=== PATIENT | female | born 1960 | race Caucasian/White ===

== ENCOUNTER → 2016-12-13 | Outpatient (CLI) | payer OTHER ==
[~2016-12-13] MED LIST: /INSU7030 SC; ASPI325T PO; CALC600T10 OR; COUM7.5T PO; CREO24CA PO; INSUDET SC; INSULANT SC; LIPI20TA PO; LISI2.5T3 PO; LISI25TA PO; Levemir SC; NADO20TA PO; NICO21PAT TD; NOVO70VL SC; NOVOINJ2 SC; OMEP20TA7 OR; OXYC-299 PO; RANI150C PO; TRAM50TA2 PO; WARF-58 PO
--- NOTE | 2016-12-13 13:24 | REP ---
ULTRASOUND ABDOMEN WITH DUPLEX DOPPLER EVALUATION OF PORTAL VASCULATURE: Real-time sonographic evaluation of the abdomen performed. Comparison is made with prior study 03/04/2016. The patient has had a prior cholecystectomy. There is intrahepatic biliary dilatation as well as dilatation of the common bile duct up to 18 mm, unchanged since the prior exam. The liver demonstrates somewhat increased echotexture suggesting some degree of fibrofatty infiltration. The pancreas is not well seen due to overlying bowel gas in the region of the body and tail. No gross liver or pancreatic mass is seen. The spleen again appears to be enlarged measuring 14.7 x 12.8 x 7.4 cm with a splenic index of 1392. There appear to be calcified splenic granulomas. Size of the spleen appears stable compared to the prior study. Kidneys appear normal in size, right kidney measuring 10.0 x 5.1 x 5.4 cm and left kidney 10.0 x 5.3 x 4.5 cm. There is no renal mass, hydronephrosis or nephrolithiasis. Visualization of the abdominal aorta is limited due to overlying bowel gas and patient body habitus. No ascites is seen. Real-time ultrasound evaluation and duplex Doppler evaluation of the portal vasculature is performed. There is mild loss of phasicity in hepatic veins. Main portal vein is dilated up to 18 mm. Prior diameter was 13 mm. There again appears to be some echogenic debris in the main portal vein as seen on prior study compatible with chronic thrombus. Normal direction of flow is seen in the portal vasculature. Maximum velocity in the splenic vein is 19 cm/s. Velocity in the main portal vein is 40 cm/s. Peak systolic velocity in the main hepatic artery is 64.2 cm/s with resistive index 0.82. IMPRESSION: Status post cholecystectomy. Stable biliary dilatation as described above. Stable splenomegaly. Somewhat dilated main portal vein has minimally increased in caliber compared to the prior study. There is again echogenic debris in the main portal vein compatible with prior chronic thrombosis. There is normal direction of flow in the portal vasculature. Signed by Kelton Sofia MD 12/13/2016 02:31 P
== END ==
LOC: M RAD 08:10
PROVIDERS: ATTEND Internal Medicine Gastroenterology
DX: K86.1 Other chronic pancreatitis (principal); K83.8 Other specified diseases of biliary tract; I81 Portal vein thrombosis; R79.89 Other specified abnormal findings of blood chemistry; K74.3 Primary biliary cirrhosis; I85.00 Esophageal varices without bleeding; I86.4 Gastric varices

== ENCOUNTER 2017-10-10 21:48 | Inpatient (IN) | payer OTHER ==
[2017-10-10 23:00] LABS: BASO % 0.4 % (0.0-1.0); EOS # 0.1 10^3/uL (0.0-0.50); IMMATURE GRANULOCYTE # 0.1 10^3/uL (0-0); IMMATURE GRANULOCYTE % 0.8 % (0-0); MEAN CORPUSCULAR HGB CONC 32.8 g/dl (32.0-36.5); MEAN CORPUSCULAR VOLUME 91.3 fl (80.0-96.0); MONO # 0.3 10^3/uL (0.0-0.8); MONO % 3.9 % (0.0-5.0); NEUTROPHILS # 6.5 10^3/uL (1.8-7.7); NEUTROPHILS % 81.9 % (36.0-66.0); PLATELET COUNT, AUTOMATED 170 10^3/uL (150-450); RED CELL DISTRIBUTION WIDTH 14.7 % (11.5-14.5); WHITE BLOOD COUNT 7.9 10^3/uL (4.0-10.0)
[2017-10-10] MEDS: MORPHINE 2 MG/ML 1ML SYRINGE IV (23:15)
[2017-10-10 23:25] LABS: ANION GAP 7 MEQ/L (8-16); BLOOD UREA NITROGEN 9 MG/DL (7-18); CALCIUM LEVEL 8.1 MG/DL (8.5-10.1); CARBON DIOXIDE LEVEL 26 MEQ/L (21-32); CHLORIDE LEVEL 104 MEQ/L (98-107); CREATININE FOR GFR 0.64 MG/DL (0.55-1.02); GLOMERULAR FILTRATION RATE > 60.0 (>51); GLUCOSE, FASTING 113 MG/DL (70-105); POTASSIUM SERUM 4.1 MEQ/L (3.5-5.1); SODIUM LEVEL 137 MEQ/L (136-145)
[2017-10-10] MEDS ORDERED: ISOVUE-370 76% 100ML VIAL (Q9967) As Ordered (23:34)
[2017-10-11] MEDS ORDERED: ONDANSETRON 4MG/2ML VIAL (J2405) As Ordered (00:36)
[2017-10-11] MEDS: ACETAMINOPHEN 650 MG SUPP PR ×4 (00:45→23:34)
[2017-10-11] MEDS: hydrALAZINE INJ 20 MG/ML VIAL IV ×2 (01:39→06:39)
[2017-10-11] MEDS: D5W/0.45% SODIUM CHLORIDE 1,000 ML IV ×3 (01:45→16:21)
[2017-10-11] MEDS ORDERED: hydrALAZINE INJ 20 MG/ML VIAL IV (01:45)
[2017-10-11] MEDS ORDERED: GLUCAGON FOR INJ 1 MG VIAL (J1610) SC (02:00)
[2017-10-11] MEDS ORDERED: GLUCOSE 4 GM CHEW TABLET PO (02:00)
[2017-10-11] MEDS: MORPHINE 2 MG/ML 1ML SYRINGE IV (03:30)
[2017-10-11] MEDS ORDERED: NS 1,000 ML IV (03:30)
[2017-10-11] MEDS ORDERED: levETIRAcetam INJection 1,000 MG in D5W 100 ML IV (04:00)
[2017-10-11 04:47] LABS: MEAN CORPUSCULAR HEMOGLOBIN 29.7 pg (27.0-33.0); MEAN CORPUSCULAR HGB CONC 33.3 g/dl (32.0-36.5); PLATELET COUNT, AUTOMATED 169 10^3/uL (150-450); RED CELL DISTRIBUTION WIDTH 14.6 % (11.5-14.5); WHITE BLOOD COUNT 8.5 10^3/uL (4.0-10.0)
[2017-10-11] MEDS: levETIRAcetam INJection 1,000 MG in D5W 100 ML IV (05:15)
[2017-10-11] MEDS: amLODIPine 5 MG TAB PO (05:19)
[2017-10-11] MEDS: ACETAMINOPHEN TAB 650MG DOSE (2X325MG) PO (05:34)
[2017-10-11] MEDS ORDERED: D5W/0.45% SODIUM CHLORIDE 1,000 ML IV (05:45)
[2017-10-11] MEDS: ONDANSETRON 4MG/2ML VIAL (J2405) IV ×4 (06:31→23:33)
[2017-10-11] MEDS ORDERED: niCARdipine IV 40 MG in APPROPRIATE DILUENT 1 EA IV (07:00)
[2017-10-11] MEDS: HumaLOG INSULIN (NovoLOG) PER UNIT SC ×6 (07:30→23:16)
[2017-10-11 07:34] LABS: ALBUMIN 2.3 GM/DL (3.2-5.2); ALBUMIN/GLOBULIN RATIO 0.47 (1.00-1.93); ALKALINE PHOSPHATASE 1500 U/L (45-117); ALT/SGPT 67 U/L (12-78); ANION GAP 9 MEQ/L (8-16); AST/SGOT 94 U/L (7-37); BILIRUBIN,TOTAL 2.2 MG/DL (0.2-1.0); BLOOD UREA NITROGEN 9 MG/DL (7-18); CALCIUM LEVEL 8.1 MG/DL (8.5-10.1); CARBON DIOXIDE LEVEL 24 MEQ/L (21-32); CHLORIDE LEVEL 104 MEQ/L (98-107); GLOMERULAR FILTRATION RATE > 60.0 (>51); GLUCOSE, FASTING 115 MG/DL (70-105); POTASSIUM SERUM 3.7 MEQ/L (3.5-5.1); SODIUM LEVEL 137 MEQ/L (136-145); TOTAL PROTEIN 7.2 GM/DL (6.4-8.2)
[2017-10-11] MEDS: PROPRANOLOL 20 MG TAB PO ×2 (09:00→20:31)
[2017-10-11] MEDS: ATORVASTATIN 20 MG TAB PO (09:00)
[2017-10-11] MEDS ORDERED: LISINOPRIL *2.5 MG* TAB PO (09:00)
[2017-10-11] MEDS: URSODIOL 300 MG CAP PO ×2 (09:00→20:31)
[2017-10-11] MEDS: PANTOPRAZOLE 40MG INJ (PROTONIX) (C9113) IV (09:01)
[2017-10-11] MEDS: NS 1,000 ML IV (10:15)
[2017-10-11] MEDS ORDERED: ACETAMINOPHEN 650 MG SUPP PR (12:00)
[2017-10-11] MEDS: SODIUM CHLORIDE 0.9% 1000 ML IV (13:15)
[2017-10-11] MEDS: DEXTROSE 50% 50 ML SYRINGE IV ×2 (16:11→20:32)
[2017-10-11] MEDS ORDERED: HumaLOG INSULIN (NovoLOG) PER UNIT SC (21:00)
[2017-10-12] MEDS: DEXTROSE 50% 50 ML SYRINGE IV (01:26)
[2017-10-12] MEDS: D5W/0.45% SODIUM CHLORIDE 1,000 ML IV (01:30)
[2017-10-12] MEDS: D5W 250 ML IV (01:30)
[2017-10-12] MEDS: MORPHINE 2 MG/ML 1ML SYRINGE IV ×2 (01:43→21:35)
[2017-10-12] MEDS: HumaLOG INSULIN (NovoLOG) PER UNIT SC ×5 (04:00→19:53)
[2017-10-12] MEDS: levETIRAcetam INJection 1,000 MG in D5W 100 ML IV (04:25)
[2017-10-12] MEDS: hydrALAZINE INJ 20 MG/ML VIAL IV ×3 (04:25→19:55)
[2017-10-12 04:29] LABS: MEAN CORPUSCULAR HEMOGLOBIN 29.8 pg (27.0-33.0); MEAN CORPUSCULAR HGB CONC 33.1 g/dl (32.0-36.5); MEAN CORPUSCULAR VOLUME 90.1 fl (80.0-96.0); PLATELET COUNT, AUTOMATED 104 10^3/uL (150-450); RED CELL DISTRIBUTION WIDTH 14.3 % (11.5-14.5); WHITE BLOOD COUNT 6.5 10^3/uL (4.0-10.0)
[2017-10-12 04:56] LABS: ANION GAP 7 MEQ/L (8-16); BLOOD UREA NITROGEN 11 MG/DL (7-18); CARBON DIOXIDE LEVEL 24 MEQ/L (21-32); CHLORIDE LEVEL 108 MEQ/L (98-107); CREATININE FOR GFR 0.58 MG/DL (0.55-1.02); GLOMERULAR FILTRATION RATE > 60.0 (>51); GLUCOSE, FASTING 141 MG/DL (70-105); POTASSIUM SERUM 3.2 MEQ/L (3.5-5.1); SODIUM LEVEL 139 MEQ/L (136-145)
[2017-10-12] MEDS: ONDANSETRON 4MG/2ML VIAL (J2405) IV ×3 (06:22→18:19)
[2017-10-12] MEDS: ACETAMINOPHEN 650 MG SUPP PR (06:23)
[2017-10-12] MEDS ORDERED: POTASSIUM CHLORIDE 10 MEQ SR TABLET PO (08:00)
[2017-10-12] MEDS: KCL 40MEQ IN D5/0.45NS 1000ML 1,000 ML IV ×2 (08:31→18:19)
[2017-10-12] MEDS: PANTOPRAZOLE 40MG INJ (PROTONIX) (C9113) IV (08:31)
[2017-10-12] MEDS: KCL 10MEQ IN 100ML SWI (KRUN) 10 MEQ in APPROPRIATE DILUENT 1 EA IV ×2 (08:31→10:18)
[2017-10-12] MEDS ORDERED: amLODIPine 5 MG TAB PO (09:00)
[2017-10-12] MEDS: ATORVASTATIN 20 MG TAB PO (09:00)
[2017-10-12] MEDS: niMODipine 30 MG CAP NG ×4 (10:18→21:17)
[2017-10-12 15:43] LABS: ALBUMIN 1.9 GM/DL (3.2-5.2); ALBUMIN/GLOBULIN RATIO 0.39 (1.00-1.93); ALKALINE PHOSPHATASE 1099 U/L (45-117); ALT/SGPT 37 U/L (12-78); ANION GAP 7 MEQ/L (8-16); AST/SGOT 40 U/L (7-37); BILIRUBIN,TOTAL 1.5 MG/DL (0.2-1.0); BLOOD UREA NITROGEN 9 MG/DL (7-18); CALCIUM LEVEL 8.3 MG/DL (8.5-10.1); CARBON DIOXIDE LEVEL 24 MEQ/L (21-32); CHLORIDE LEVEL 106 MEQ/L (98-107); CREATININE FOR GFR 0.57 MG/DL (0.55-1.02); GLOMERULAR FILTRATION RATE > 60.0 (>51); GLUCOSE, FASTING 136 MG/DL (70-105); POTASSIUM SERUM 3.7 MEQ/L (3.5-5.1); SODIUM LEVEL 137 MEQ/L (136-145); TOTAL PROTEIN 6.8 GM/DL (6.4-8.2)
[2017-10-13] MEDS: ONDANSETRON 4MG/2ML VIAL (J2405) IV
[2017-10-13] MEDS: niMODipine 30 MG CAP NG ×6 (01:59→21:33)
[2017-10-13] MEDS: hydrALAZINE INJ 20 MG/ML VIAL IV ×3 (04:00→19:57)
[2017-10-13] MEDS: KCL 40MEQ IN D5/0.45NS 1000ML 1,000 ML IV ×2 (04:11→14:39)
[2017-10-13] MEDS: HumaLOG INSULIN (NovoLOG) PER UNIT SC ×6 (04:11→19:58)
[2017-10-13] MEDS: levETIRAcetam INJection 1,000 MG in D5W 100 ML IV (04:26)
[2017-10-13 04:39] LABS: MEAN CORPUSCULAR HEMOGLOBIN 29.8 pg (27.0-33.0); MEAN CORPUSCULAR HGB CONC 32.9 g/dl (32.0-36.5); MEAN CORPUSCULAR VOLUME 90.7 fl (80.0-96.0); PLATELET COUNT, AUTOMATED 102 10^3/uL (150-450); RED CELL DISTRIBUTION WIDTH 14.4 % (11.5-14.5); WHITE BLOOD COUNT 5.7 10^3/uL (4.0-10.0)
[2017-10-13 05:03] LABS: ANION GAP 8 MEQ/L (8-16); BLOOD UREA NITROGEN 7 MG/DL (7-18); CALCIUM LEVEL 8.3 MG/DL (8.5-10.1); CARBON DIOXIDE LEVEL 22 MEQ/L (21-32); CHLORIDE LEVEL 108 MEQ/L (98-107); CREATININE FOR GFR 0.55 MG/DL (0.55-1.02); GLOMERULAR FILTRATION RATE > 60.0 (>51); GLUCOSE, FASTING 172 MG/DL (70-105); POTASSIUM SERUM 4.1 MEQ/L (3.5-5.1); SODIUM LEVEL 138 MEQ/L (136-145)
[2017-10-13] MEDS: PANTOPRAZOLE 40MG INJ (PROTONIX) (C9113) IV (08:12)
[2017-10-13] MEDS: ATORVASTATIN 20 MG TAB PO (08:15)
[2017-10-14] MEDS: KCL 40MEQ IN D5/0.45NS 1000ML 1,000 ML IV (00:26)
[2017-10-14] MEDS: HumaLOG INSULIN (NovoLOG) PER UNIT SC ×6 (00:27→19:49)
[2017-10-14] MEDS: niMODipine 30 MG CAP NG ×7 (02:18→22:25)
[2017-10-14] MEDS: hydrALAZINE INJ 20 MG/ML VIAL IV ×3 (04:00→19:45)
[2017-10-14] MEDS: levETIRAcetam INJection 1,000 MG in D5W 100 ML IV (04:55)
[2017-10-14 05:08] LABS: MEAN CORPUSCULAR HEMOGLOBIN 29.6 pg (27.0-33.0); MEAN CORPUSCULAR VOLUME 89.8 fl (80.0-96.0); PLATELET COUNT, AUTOMATED 100 10^3/uL (150-450); RED CELL DISTRIBUTION WIDTH 13.9 % (11.5-14.5); WHITE BLOOD COUNT 5.6 10^3/uL (4.0-10.0)
[2017-10-14 05:21] LABS: ANION GAP 5 MEQ/L (8-16); BLOOD UREA NITROGEN 7 MG/DL (7-18); CALCIUM LEVEL 8.4 MG/DL (8.5-10.1); CARBON DIOXIDE LEVEL 26 MEQ/L (21-32); CHLORIDE LEVEL 105 MEQ/L (98-107); CREATININE FOR GFR 0.53 MG/DL (0.55-1.02); GLOMERULAR FILTRATION RATE > 60.0 (>51); GLUCOSE, FASTING 216 MG/DL (70-105); POTASSIUM SERUM 4.4 MEQ/L (3.5-5.1); SODIUM LEVEL 136 MEQ/L (136-145)
[2017-10-14] MEDS: ATORVASTATIN 20 MG TAB PO (09:00)
[2017-10-14] MEDS: PANTOPRAZOLE 40MG INJ (PROTONIX) (C9113) IV (09:00)
[2017-10-14] MEDS: D5W/0.45% SODIUM CHLORIDE 1,000 ML IV (12:45)
[2017-10-15] MEDS: HumaLOG INSULIN (NovoLOG) PER UNIT SC ×6 (00:15→21:21)
[2017-10-15] MEDS: niMODipine 30 MG CAP NG ×6 (01:59→22:49)
[2017-10-15] MEDS: D5W/0.45% SODIUM CHLORIDE 1,000 ML IV (03:56)
[2017-10-15] MEDS: levETIRAcetam INJection 1,000 MG in D5W 100 ML IV (03:56)
[2017-10-15] MEDS: hydrALAZINE INJ 20 MG/ML VIAL IV ×3 (03:57→20:00)
[2017-10-15 05:34] LABS: ANION GAP 9 MEQ/L (8-16); BLOOD UREA NITROGEN 8 MG/DL (7-18); CALCIUM LEVEL 7.9 MG/DL (8.5-10.1); CARBON DIOXIDE LEVEL 23 MEQ/L (21-32); CHLORIDE LEVEL 99 MEQ/L (98-107); CREATININE FOR GFR 0.69 MG/DL (0.55-1.02); GLOMERULAR FILTRATION RATE > 60.0 (>51); GLUCOSE, FASTING 194 MG/DL (70-105); POTASSIUM SERUM 3.5 MEQ/L (3.5-5.1); SODIUM LEVEL 131 MEQ/L (136-145)
[2017-10-15 07:40] LABS: BASO % 0.2 % (0.0-1.0); EOS # 0.1 10^3/uL (0.0-0.50); EOS % 0.8 % (0.0-3.0); IMMATURE GRANULOCYTE % 0.4 % (0-0); LYMPH # 1.5 10^3/uL (1.5-4.5); LYMPH % 15.1 % (24.0-44.0); MEAN CORPUSCULAR HEMOGLOBIN 29.6 pg (27.0-33.0); MEAN CORPUSCULAR HGB CONC 33.2 g/dl (32.0-36.5); MEAN CORPUSCULAR VOLUME 89.1 fl (80.0-96.0); MONO # 0.6 10^3/uL (0.0-0.8); MONO % 6.7 % (0.0-5.0); NEUTROPHILS # 7.4 10^3/uL (1.8-7.7); NEUTROPHILS % 76.8 % (36.0-66.0); PLATELET COUNT, AUTOMATED 172 10^3/uL (150-450); RED CELL DISTRIBUTION WIDTH 13.8 % (11.5-14.5); WHITE BLOOD COUNT 9.6 10^3/uL (4.0-10.0)
[2017-10-15 07:43] LABS: MAGNESIUM LEVEL 1.4 MG/DL (1.8-2.4)
[2017-10-15] MEDS: ATORVASTATIN 20 MG TAB PO (09:27)
[2017-10-15] MEDS: PANTOPRAZOLE 40MG INJ (PROTONIX) (C9113) IV (09:27)
[2017-10-15] MEDS: MAG SULF 1GM/100ML (MAG RUN) 1 GM in APPROPRIATE DILUENT 1 EA IV ×2 (10:57→12:02)
[2017-10-15] MEDS: NS 1,000 ML IV (13:05)
[2017-10-15 15:45] LABS: ALBUMIN 2.1 GM/DL (3.2-5.2); ALBUMIN/GLOBULIN RATIO 0.47 (1.00-1.93); ALKALINE PHOSPHATASE 984 U/L (45-117); ALT/SGPT 26 U/L (12-78); ANION GAP 10 MEQ/L (8-16); AST/SGOT 30 U/L (7-37); BILIRUBIN,TOTAL 2.2 MG/DL (0.2-1.0); BLOOD UREA NITROGEN 9 MG/DL (7-18); CARBON DIOXIDE LEVEL 24 MEQ/L (21-32); CHLORIDE LEVEL 98 MEQ/L (98-107); CREATININE FOR GFR 0.62 MG/DL (0.55-1.02); GLOMERULAR FILTRATION RATE > 60.0 (>51); GLUCOSE, FASTING 183 MG/DL (70-105); POTASSIUM SERUM 3.8 MEQ/L (3.5-5.1); SODIUM LEVEL 132 MEQ/L (136-145); TOTAL PROTEIN 6.6 GM/DL (6.4-8.2)
[2017-10-16] MEDS: HumaLOG INSULIN (NovoLOG) PER UNIT SC ×7 (00:28→23:58)
[2017-10-16 00:30] LABS: SODIUM LEVEL 132 MEQ/L (136-145)
[2017-10-16] MEDS: niMODipine 30 MG CAP NG ×6 (02:28→23:14)
[2017-10-16] MEDS: hydrALAZINE INJ 20 MG/ML VIAL IV (04:00)
[2017-10-16] MEDS: levETIRAcetam INJection 1,000 MG in D5W 100 ML IV (04:24)
[2017-10-16] MEDS: NS 1,000 ML IV ×2 (04:24→16:15)
[2017-10-16 05:22] LABS: BASO % 0.2 % (0.0-1.0); EOS # 0.1 10^3/uL (0.0-0.50); EOS % 1.5 % (0.0-3.0); IMMATURE GRANULOCYTE % 0.4 % (0-0); LYMPH # 0.9 10^3/uL (1.5-4.5); LYMPH % 11.3 % (24.0-44.0); MEAN CORPUSCULAR HEMOGLOBIN 29.5 pg (27.0-33.0); MEAN CORPUSCULAR HGB CONC 33.8 g/dl (32.0-36.5); MEAN CORPUSCULAR VOLUME 87.3 fl (80.0-96.0); MONO # 0.5 10^3/uL (0.0-0.8); MONO % 5.7 % (0.0-5.0); NEUTROPHILS # 6.5 10^3/uL (1.8-7.7); NEUTROPHILS % 80.9 % (36.0-66.0); PLATELET COUNT, AUTOMATED 154 10^3/uL (150-450); RED CELL DISTRIBUTION WIDTH 13.7 % (11.5-14.5)
[2017-10-16 05:48] LABS: ALBUMIN 1.9 GM/DL (3.2-5.2); ALKALINE PHOSPHATASE 980 U/L (45-117); ALT/SGPT 24 U/L (12-78); ANION GAP 9 MEQ/L (8-16); AST/SGOT 27 U/L (7-37); BILIRUBIN,TOTAL 1.8 MG/DL (0.2-1.0); BLOOD UREA NITROGEN 11 MG/DL (7-18); CALCIUM LEVEL 7.7 MG/DL (8.5-10.1); CARBON DIOXIDE LEVEL 21 MEQ/L (21-32); CHLORIDE LEVEL 103 MEQ/L (98-107); CREATININE FOR GFR 0.65 MG/DL (0.55-1.02); GLOMERULAR FILTRATION RATE > 60.0 (>51); GLUCOSE, FASTING 184 MG/DL (70-105); MAGNESIUM LEVEL 2.1 MG/DL (1.8-2.4); POTASSIUM SERUM 3.7 MEQ/L (3.5-5.1); SODIUM LEVEL 133 MEQ/L (136-145); TOTAL PROTEIN 6.7 GM/DL (6.4-8.2)
[2017-10-16] MEDS: PANTOPRAZOLE 40MG INJ (PROTONIX) (C9113) IV (09:08)
[2017-10-16] MEDS: ATORVASTATIN 20 MG TAB PO (09:08)
[2017-10-16 13:27] LABS: ANION GAP 10 MEQ/L (8-16); BLOOD UREA NITROGEN 11 MG/DL (7-18); CALCIUM LEVEL 7.7 MG/DL (8.5-10.1); CARBON DIOXIDE LEVEL 22 MEQ/L (21-32); CHLORIDE LEVEL 104 MEQ/L (98-107); CREATININE FOR GFR 0.59 MG/DL (0.55-1.02); GAMMA GLUTAMYLTRANSPEPTIDASE 871 U/L (5-55); GLOMERULAR FILTRATION RATE > 60.0 (>51); GLUCOSE, FASTING 153 MG/DL (70-105); MAGNESIUM LEVEL 2.2 MG/DL (1.8-2.4); POTASSIUM SERUM 3.8 MEQ/L (3.5-5.1); SODIUM LEVEL 136 MEQ/L (136-145)
[2017-10-16 18:30] LABS: ANION GAP 11 MEQ/L (8-16); BLOOD UREA NITROGEN 12 MG/DL (7-18); CALCIUM LEVEL 7.5 MG/DL (8.5-10.1); CARBON DIOXIDE LEVEL 21 MEQ/L (21-32); CHLORIDE LEVEL 105 MEQ/L (98-107); GLOMERULAR FILTRATION RATE > 60.0 (>51); GLUCOSE, FASTING 157 MG/DL (70-105); MAGNESIUM LEVEL 2.2 MG/DL (1.8-2.4); POTASSIUM SERUM 3.6 MEQ/L (3.5-5.1); SODIUM LEVEL 137 MEQ/L (136-145)
[2017-10-17 01:02] LABS: ANION GAP 7 MEQ/L (8-16); BLOOD UREA NITROGEN 14 MG/DL (7-18); CARBON DIOXIDE LEVEL 23 MEQ/L (21-32); CHLORIDE LEVEL 105 MEQ/L (98-107); CREATININE FOR GFR 0.63 MG/DL (0.55-1.02); GLOMERULAR FILTRATION RATE > 60.0 (>51); GLUCOSE, FASTING 185 MG/DL (70-105); MAGNESIUM LEVEL 2.4 MG/DL (1.8-2.4); POTASSIUM SERUM 3.8 MEQ/L (3.5-5.1); SODIUM LEVEL 135 MEQ/L (136-145)
[2017-10-17] MEDS: niMODipine 30 MG CAP NG ×6 (02:02→21:50)
[2017-10-17] MEDS: NS 1,000 ML IV ×2 (02:02→14:28)
[2017-10-17] MEDS: levETIRAcetam INJection 1,000 MG in D5W 100 ML IV ×2 (04:10→17:56)
[2017-10-17] MEDS: HumaLOG INSULIN (NovoLOG) PER UNIT SC ×4 (04:10→17:42)
[2017-10-17 04:55] LABS: BASO % 0.4 % (0.0-1.0); EOS # 0.2 10^3/uL (0.0-0.50); EOS % 1.9 % (0.0-3.0); IMMATURE GRANULOCYTE % 0.5 % (0-0); LYMPH # 0.8 10^3/uL (1.5-4.5); LYMPH % 10.3 % (24.0-44.0); MEAN CORPUSCULAR HEMOGLOBIN 30.2 pg (27.0-33.0); MEAN CORPUSCULAR HGB CONC 33.3 g/dl (32.0-36.5); MEAN CORPUSCULAR VOLUME 90.5 fl (80.0-96.0); MONO # 0.6 10^3/uL (0.0-0.8); NEUTROPHILS # 6.4 10^3/uL (1.8-7.7); NEUTROPHILS % 79.9 % (36.0-66.0); PLATELET COUNT, AUTOMATED 150 10^3/uL (150-450); RED CELL DISTRIBUTION WIDTH 14.1 % (11.5-14.5)
[2017-10-17 05:24] LABS: ALBUMIN/GLOBULIN RATIO 0.42 (1.00-1.93); ALKALINE PHOSPHATASE 939 U/L (45-117); ALT/SGPT 22 U/L (12-78); ANION GAP 9 MEQ/L (8-16); AST/SGOT 24 U/L (7-37); BILIRUBIN,TOTAL 1.6 MG/DL (0.2-1.0); BLOOD UREA NITROGEN 12 MG/DL (7-18); CALCIUM LEVEL 7.9 MG/DL (8.5-10.1); CARBON DIOXIDE LEVEL 22 MEQ/L (21-32); CHLORIDE LEVEL 105 MEQ/L (98-107); CREATININE FOR GFR 0.64 MG/DL (0.55-1.02); GLOMERULAR FILTRATION RATE > 60.0 (>51); GLUCOSE, FASTING 186 MG/DL (70-105); MAGNESIUM LEVEL 1.9 MG/DL (1.8-2.4); POTASSIUM SERUM 3.8 MEQ/L (3.5-5.1); SODIUM LEVEL 136 MEQ/L (136-145); TOTAL PROTEIN 6.8 GM/DL (6.4-8.2)
[2017-10-17] MEDS ORDERED: ISOVUE-370 76% 100ML VIAL (Q9967) As Ordered ×2 (06:15→07:48)
[2017-10-17] MEDS: PANTOPRAZOLE 40MG INJ (PROTONIX) (C9113) IV (08:50)
[2017-10-17] MEDS: ATORVASTATIN 20 MG TAB PO (08:50)
[2017-10-18] MEDS: HumaLOG INSULIN (NovoLOG) PER UNIT SC ×2 (00:13→05:51)
[2017-10-18] MEDS: NS 1,000 ML IV (00:14)
[2017-10-18] MEDS: niMODipine 30 MG CAP NG ×3 (02:03→08:57)
[2017-10-18 04:39] LABS: BASO % 0.4 % (0.0-1.0); EOS # 0.2 10^3/uL (0.0-0.50); EOS % 2.3 % (0.0-3.0); IMMATURE GRANULOCYTE % 0.4 % (0-0); LYMPH % 13.6 % (24.0-44.0); MEAN CORPUSCULAR HEMOGLOBIN 30.1 pg (27.0-33.0); MEAN CORPUSCULAR HGB CONC 34.2 g/dl (32.0-36.5); MONO # 0.5 10^3/uL (0.0-0.8); NEUTROPHILS # 5.4 10^3/uL (1.8-7.7); NEUTROPHILS % 76.3 % (36.0-66.0); PLATELET COUNT, AUTOMATED 165 10^3/uL (150-450); RED CELL DISTRIBUTION WIDTH 14.1 % (11.5-14.5); WHITE BLOOD COUNT 7.1 10^3/uL (4.0-10.0)
[2017-10-18 05:22] LABS: ALBUMIN 1.9 GM/DL (3.2-5.2); ALKALINE PHOSPHATASE 915 U/L (45-117); ALT/SGPT 19 U/L (12-78); ANION GAP 10 MEQ/L (8-16); AST/SGOT 25 U/L (7-37); BILIRUBIN,TOTAL 1.3 MG/DL (0.2-1.0); BLOOD UREA NITROGEN 11 MG/DL (7-18); CALCIUM LEVEL 7.7 MG/DL (8.5-10.1); CARBON DIOXIDE LEVEL 21 MEQ/L (21-32); CHLORIDE LEVEL 105 MEQ/L (98-107); CREATININE FOR GFR 0.54 MG/DL (0.55-1.02); GLOMERULAR FILTRATION RATE > 60.0 (>51); GLUCOSE, FASTING 228 MG/DL (70-105); SODIUM LEVEL 136 MEQ/L (136-145); TOTAL PROTEIN 6.7 GM/DL (6.4-8.2)
[2017-10-18] MEDS: levETIRAcetam INJection 1,000 MG in D5W 100 ML IV (05:51)
[2017-10-18] MEDS: PANTOPRAZOLE 40MG INJ (PROTONIX) (C9113) IV (07:48)
[2017-10-18] MEDS: ATORVASTATIN 20 MG TAB PO (07:48)
== END 2017-10-18 09:23 | disposition short-term general hospital (02) | DRG 55 ==
LOC: M ED INP 10-11 00:15 → M ICU 10-11 03:50 → M ED 21:48
DX: S06.6X1A Traumatic subarachnoid hemorrhage with loss of consciousness of 30 minutes or less, initial encounter (principal); G93.40 Encephalopathy, unspecified; K86.1 Other chronic pancreatitis; I69.354 Hemiplegia and hemiparesis following cerebral infarction affecting left non-dominant side; G40.909 Epilepsy, unspecified, not intractable, without status epilepticus; E11.9 Type 2 diabetes mellitus without complications; I10 Essential (primary) hypertension; E78.5 Hyperlipidemia, unspecified; W18.30XA Fall on same level, unspecified, initial encounter; Y92.009 Unspecified place in unspecified non-institutional (private) residence as the place of occurrence of the external cause; S06.1X1A Traumatic cerebral edema with loss of consciousness of 30 minutes or less, initial encounter; S06.5X1A Traumatic subdural hemorrhage with loss of consciousness of 30 minutes or less, initial encounter; S02.119A Unspecified fracture of occiput, initial encounter for closed fracture; E87.1 Hypo-osmolality and hyponatremia; F17.200 Nicotine dependence, unspecified, uncomplicated; Z79.82 Long term (current) use of aspirin; Z79.899 Other long term (current) drug therapy; Z86.718 Personal history of other venous thrombosis and embolism; Z79.4 Long term (current) use of insulin

== ENCOUNTER 2017-10-20 19:53 | Inpatient (IN) | payer OTHER ==
[2017-10-20] MEDS ORDERED: NS 1,000 ML IV (20:27)
[2017-10-20] MEDS: ATORVASTATIN 20 MG TAB NG (21:00)
[2017-10-20] MEDS: URSODIOL 300 MG CAP PEG (21:00)
[2017-10-20] MEDS ORDERED: PROPRANOLOL 20 MG TAB NG (21:00)
[2017-10-20 22:13] LABS: BASO % 0.5 % (0.0-1.0); EOS # 0.1 10^3/uL (0.0-0.50); EOS % 2.1 % (0.0-3.0); HEMATOCRIT 27.7 % (36.0-47.0); HEMOGLOBIN 9.2 g/dl (12.0-16.0); IMMATURE GRANULOCYTE % 0.5 % (0-0); LYMPH # 1.2 10^3/uL (1.5-4.5); LYMPH % 18.8 % (24.0-44.0); MEAN CORPUSCULAR HEMOGLOBIN 30.4 pg (27.0-33.0); MEAN CORPUSCULAR HGB CONC 33.2 g/dl (32.0-36.5); MEAN CORPUSCULAR VOLUME 91.4 fl (80.0-96.0); MONO # 0.4 10^3/uL (0.0-0.8); MONO % 5.9 % (0.0-5.0); NEUTROPHILS # 4.5 10^3/uL (1.8-7.7); NEUTROPHILS % 72.2 % (36.0-66.0); PLATELET COUNT, AUTOMATED 172 10^3/uL (150-450); RED BLOOD COUNT 3.03 10^6/uL (4.00-5.40); RED CELL DISTRIBUTION WIDTH 14.7 % (11.5-14.5); WHITE BLOOD COUNT 6.3 10^3/uL (4.0-10.0)
[2017-10-20 22:42] LABS: ALBUMIN 1.9 GM/DL (3.2-5.2); ALBUMIN/GLOBULIN RATIO 0.39 (1.00-1.93); ALKALINE PHOSPHATASE 951 U/L (45-117); ALT/SGPT 21 U/L (12-78); ANION GAP 9 MEQ/L (8-16); AST/SGOT 38 U/L (7-37); BILIRUBIN,DIRECT 0.7 MG/DL (0.0-0.2); BILIRUBIN,TOTAL 1.2 MG/DL (0.2-1.0); BLOOD UREA NITROGEN 17 MG/DL (7-18); CALCIUM LEVEL 8.1 MG/DL (8.5-10.1); CARBON DIOXIDE LEVEL 24 MEQ/L (21-32); CHLORIDE LEVEL 108 MEQ/L (98-107); CREATININE FOR GFR 0.47 MG/DL (0.55-1.02); GLOMERULAR FILTRATION RATE > 60.0 (>51); GLUCOSE, FASTING 122 MG/DL (70-105); LIPASE 33 U/L (73-393); MAGNESIUM LEVEL 1.9 MG/DL (1.8-2.4); POTASSIUM SERUM 3.6 MEQ/L (3.5-5.1); SODIUM LEVEL 141 MEQ/L (136-145); TOTAL PROTEIN 6.8 GM/DL (6.4-8.2)
[2017-10-20] MEDS: D5W/0.45% SODIUM CHLORIDE 1,000 ML IV (22:51)
[2017-10-21 05:06] LABS: HEMATOCRIT 28.2 % (36.0-47.0); HEMOGLOBIN 9.4 g/dl (12.0-16.0); MEAN CORPUSCULAR HEMOGLOBIN 29.7 pg (27.0-33.0); MEAN CORPUSCULAR HGB CONC 33.3 g/dl (32.0-36.5); PLATELET COUNT, AUTOMATED 186 10^3/uL (150-450); RED BLOOD COUNT 3.17 10^6/uL (4.00-5.40); RED CELL DISTRIBUTION WIDTH 14.5 % (11.5-14.5); WHITE BLOOD COUNT 6.9 10^3/uL (4.0-10.0)
[2017-10-21 05:22] LABS: ANION GAP 12 MEQ/L (8-16); BLOOD UREA NITROGEN 18 MG/DL (7-18); CALCIUM LEVEL 8.1 MG/DL (8.5-10.1); CARBON DIOXIDE LEVEL 21 MEQ/L (21-32); CHLORIDE LEVEL 107 MEQ/L (98-107); CREATININE FOR GFR 0.55 MG/DL (0.55-1.02); GLOMERULAR FILTRATION RATE > 60.0 (>51); GLUCOSE, FASTING 230 MG/DL (70-105); MAGNESIUM LEVEL 1.8 MG/DL (1.8-2.4); POTASSIUM SERUM 3.7 MEQ/L (3.5-5.1); SODIUM LEVEL 140 MEQ/L (136-145)
[2017-10-21] MEDS ORDERED: GLUCOSE 4 GM CHEW TABLET PO (05:45)
[2017-10-21] MEDS ORDERED: GLUCAGON FOR INJ 1 MG VIAL (J1610) SC (05:45)
[2017-10-21] MEDS: HumaLOG INSULIN (NovoLOG) PER UNIT SC ×3 (10:25→17:27)
[2017-10-21] MEDS: D5W/0.45% SODIUM CHLORIDE 1,000 ML IV (11:35)
[2017-10-21] MEDS: NADOLOL 20MG TABLET NG (12:10)
[2017-10-21] MEDS: LISINOPRIL *2.5 MG* TAB PO (12:11)
[2017-10-21] MEDS: URSODIOL 300 MG CAP PEG ×2 (12:11→21:00)
[2017-10-21] MEDS: LEVEMIR (INSULIN DETEMIR) 1 UNITS/0.01ML SC (12:11)
[2017-10-21] MEDS: PARoxetine 20 MG TAB NG (12:11)
[2017-10-21] MEDS: ASPIRIN 81 MG ENTERIC TAB NG (12:11)
[2017-10-21 12:12] LABS: BEDSIDE GLUCOSE 280 MG/DL (70-105)
[2017-10-21] MEDS ORDERED: DEXTROSE 50% 50 ML SYRINGE IV (15:00)
[2017-10-21 17:27] LABS: BEDSIDE GLUCOSE 172 MG/DL (70-105)
[2017-10-21] MEDS: ATORVASTATIN 20 MG TAB NG (21:00)
[2017-10-21 21:12] LABS: BEDSIDE GLUCOSE 178 MG/DL (70-105)
[2017-10-22] MEDS: HumaLOG INSULIN (NovoLOG) PER UNIT SC ×4 (00:12→18:30)
[2017-10-22 00:14] LABS: BEDSIDE GLUCOSE 256 MG/DL (70-105)
[2017-10-22] MEDS: D5W/0.45% SODIUM CHLORIDE 1,000 ML IV (03:31)
[2017-10-22 05:29] LABS: HEMATOCRIT 29.1 % (36.0-47.0); HEMOGLOBIN 9.5 g/dl (12.0-16.0); MEAN CORPUSCULAR HEMOGLOBIN 29.4 pg (27.0-33.0); MEAN CORPUSCULAR HGB CONC 32.6 g/dl (32.0-36.5); MEAN CORPUSCULAR VOLUME 90.1 fl (80.0-96.0); PLATELET COUNT, AUTOMATED 200 10^3/uL (150-450); RED BLOOD COUNT 3.23 10^6/uL (4.00-5.40); RED CELL DISTRIBUTION WIDTH 14.4 % (11.5-14.5); WHITE BLOOD COUNT 6.8 10^3/uL (4.0-10.0)
[2017-10-22] MEDS: niMODipine 30 MG CAP PO ×5 (05:31→21:24)
[2017-10-22 05:44] LABS: ANION GAP 8 MEQ/L (8-16); BLOOD UREA NITROGEN 14 MG/DL (7-18); CALCIUM LEVEL 8.2 MG/DL (8.5-10.1); CARBON DIOXIDE LEVEL 24 MEQ/L (21-32); CHLORIDE LEVEL 105 MEQ/L (98-107); CREATININE FOR GFR 0.53 MG/DL (0.55-1.02); GLOMERULAR FILTRATION RATE > 60.0 (>51); GLUCOSE, FASTING 197 MG/DL (70-105); MAGNESIUM LEVEL 1.9 MG/DL (1.8-2.4); POTASSIUM SERUM 3.4 MEQ/L (3.5-5.1); SODIUM LEVEL 137 MEQ/L (136-145)
[2017-10-22] MEDS: PARoxetine 20 MG TAB NG (07:41)
[2017-10-22] MEDS: NADOLOL 20MG TABLET NG (07:41)
[2017-10-22] MEDS: ASPIRIN 81 MG ENTERIC TAB NG (07:41)
[2017-10-22] MEDS: LISINOPRIL *2.5 MG* TAB PO (07:42)
[2017-10-22] MEDS: URSODIOL 300 MG CAP PEG ×2 (07:42→21:24)
[2017-10-22] MEDS: LEVEMIR (INSULIN DETEMIR) 1 UNITS/0.01ML SC (07:42)
[2017-10-22] MEDS: KCL 10MEQ IN 100ML SWI (KRUN) 10 MEQ in APPROPRIATE DILUENT 1 EA IV ×3 (09:37→12:03)
[2017-10-22 12:12] LABS: BEDSIDE GLUCOSE 222 MG/DL (70-105)
[2017-10-22] MEDS ORDERED: fentaNYL 100 MCG/2 ML INJECTION (J3010) As Ordered (13:36)
[2017-10-22] MEDS ORDERED: PROPOFOL 200 MG/20 ML VIAL As Ordered (13:36)
[2017-10-22] MEDS ORDERED: MIDAZOLAM INJ 2 MG/2 ML VIAL (J2250) As Ordered (13:36)
[2017-10-22] MEDS ORDERED: UNASYN 1.5 GM VIAL As Ordered (14:17)
[2017-10-22] MEDS: UNASYN 3 GM VIAL IV (14:53)
[2017-10-22 15:42] LABS: BEDSIDE GLUCOSE 148 MG/DL (70-105)
[2017-10-22] MEDS ORDERED: ONDANSETRON 4MG/2ML VIAL (J2405) IV (15:45)
[2017-10-22] MEDS ORDERED: fentaNYL 100 MCG/2 ML INJECTION (J3010) IV (15:45)
[2017-10-22] MEDS: LR 1,000 ML IV (18:30)
[2017-10-22] MEDS: ATORVASTATIN 20 MG TAB NG (21:24)
[2017-10-22 23:54] LABS: BEDSIDE GLUCOSE 304 MG/DL (70-105)
[2017-10-23] MEDS: HumaLOG INSULIN (NovoLOG) PER UNIT SC ×5 (00:28→23:30)
[2017-10-23] MEDS: ACETAMINOPHEN TAB 650MG DOSE (2X325MG) PO (01:21)
[2017-10-23] MEDS: niMODipine 30 MG CAP PO ×6 (01:21→21:39)
[2017-10-23] MEDS: D5W/0.45% SODIUM CHLORIDE 1,000 ML IV ×2 (03:55→22:02)
[2017-10-23 05:52] LABS: BEDSIDE GLUCOSE 262 MG/DL (70-105)
[2017-10-23 06:01] LABS: HEMATOCRIT 29.4 % (36.0-47.0); HEMOGLOBIN 9.7 g/dl (12.0-16.0); MEAN CORPUSCULAR HEMOGLOBIN 29.9 pg (27.0-33.0); MEAN CORPUSCULAR VOLUME 90.7 fl (80.0-96.0); PLATELET COUNT, AUTOMATED 195 10^3/uL (150-450); RED BLOOD COUNT 3.24 10^6/uL (4.00-5.40); RED CELL DISTRIBUTION WIDTH 14.6 % (11.5-14.5); WHITE BLOOD COUNT 8.6 10^3/uL (4.0-10.0)
[2017-10-23 06:25] LABS: ANION GAP 11 MEQ/L (8-16); BLOOD UREA NITROGEN 11 MG/DL (7-18); CALCIUM LEVEL 8.3 MG/DL (8.5-10.1); CARBON DIOXIDE LEVEL 23 MEQ/L (21-32); CHLORIDE LEVEL 104 MEQ/L (98-107); CREATININE FOR GFR 0.58 MG/DL (0.55-1.02); GLOMERULAR FILTRATION RATE > 60.0 (>51); GLUCOSE, FASTING 255 MG/DL (70-105); MAGNESIUM LEVEL 1.9 MG/DL (1.8-2.4); POTASSIUM SERUM 3.8 MEQ/L (3.5-5.1); SODIUM LEVEL 138 MEQ/L (136-145)
[2017-10-23] MEDS: ASPIRIN 81 MG ENTERIC TAB NG (09:00)
[2017-10-23] MEDS: PARoxetine 20 MG TAB NG (09:35)
[2017-10-23] MEDS: LISINOPRIL *2.5 MG* TAB PO (09:35)
[2017-10-23] MEDS: URSODIOL 300 MG CAP PEG ×2 (09:35→21:39)
[2017-10-23] MEDS: NADOLOL 20MG TABLET NG (09:35)
[2017-10-23] MEDS: LEVEMIR (INSULIN DETEMIR) 1 UNITS/0.01ML SC (09:36)
[2017-10-23 13:56] LABS: BEDSIDE GLUCOSE 193 MG/DL (70-105)
[2017-10-23] MEDS: ASPIRIN 81 MG CHEW TABLET PEG (13:59)
[2017-10-23 18:13] LABS: BEDSIDE GLUCOSE 128 MG/DL (70-105)
[2017-10-23] MEDS ORDERED: ACETAMINOPHEN 325 MG/10.15 ML UDC As Ordered (18:23)
[2017-10-23] MEDS: ACETAMINOPHEN 325 MG/10.15 ML UDC GT (18:31)
[2017-10-23] MEDS: ATORVASTATIN 20 MG TAB NG (21:39)
[2017-10-24 00:07] LABS: BEDSIDE GLUCOSE 80 MG/DL (70-105)
[2017-10-24] MEDS: niMODipine 30 MG CAP PO ×6 (02:09→21:52)
[2017-10-24] MEDS: HumaLOG INSULIN (NovoLOG) PER UNIT SC ×3 (05:40→18:00)
[2017-10-24 05:43] LABS: BEDSIDE GLUCOSE 206 MG/DL (70-105)
[2017-10-24 05:56] LABS: HEMOGLOBIN 9.6 g/dl (12.0-16.0); MEAN CORPUSCULAR HEMOGLOBIN 29.8 pg (27.0-33.0); MEAN CORPUSCULAR HGB CONC 33.1 g/dl (32.0-36.5); MEAN CORPUSCULAR VOLUME 90.1 fl (80.0-96.0); PLATELET COUNT, AUTOMATED 204 10^3/uL (150-450); RED BLOOD COUNT 3.22 10^6/uL (4.00-5.40); RED CELL DISTRIBUTION WIDTH 14.9 % (11.5-14.5); WHITE BLOOD COUNT 6.3 10^3/uL (4.0-10.0)
[2017-10-24 06:16] LABS: ANION GAP 9 MEQ/L (8-16); BLOOD UREA NITROGEN 9 MG/DL (7-18); CALCIUM LEVEL 7.8 MG/DL (8.5-10.1); CARBON DIOXIDE LEVEL 24 MEQ/L (21-32); CHLORIDE LEVEL 106 MEQ/L (98-107); CREATININE FOR GFR 0.57 MG/DL (0.55-1.02); GLOMERULAR FILTRATION RATE > 60.0 (>51); GLUCOSE, FASTING 184 MG/DL (70-105); POTASSIUM SERUM 3.7 MEQ/L (3.5-5.1); SODIUM LEVEL 139 MEQ/L (136-145)
[2017-10-24] MEDS: PARoxetine 20 MG TAB NG (08:37)
[2017-10-24] MEDS: ASPIRIN 81 MG CHEW TABLET PEG (08:38)
[2017-10-24] MEDS: URSODIOL 300 MG CAP PEG ×2 (08:38→21:52)
[2017-10-24] MEDS: LEVEMIR (INSULIN DETEMIR) 1 UNITS/0.01ML SC (08:38)
[2017-10-24] MEDS: D5W/0.45% SODIUM CHLORIDE 1,000 ML IV (08:39)
[2017-10-24] MEDS ORDERED: NADOLOL 20MG TABLET PEG (09:00)
[2017-10-24] MEDS: LISINOPRIL *2.5 MG* TAB PO (09:00)
[2017-10-24] MEDS ORDERED: SLF 3 ML SYR IV ×2 (09:15→14:00)
[2017-10-24 12:06] LABS: BEDSIDE GLUCOSE 195 MG/DL (70-105)
[2017-10-24] MEDS: ACETAMINOPHEN 325 MG/10.15 ML UDC GT (14:39)
[2017-10-24 18:54] LABS: BEDSIDE GLUCOSE 87 MG/DL (70-105)
[2017-10-24] MEDS: ATORVASTATIN 20 MG TAB NG (21:52)
[2017-10-25] MEDS: HumaLOG INSULIN (NovoLOG) PER UNIT SC ×4 (00:23→17:54)
[2017-10-25] MEDS: D5W/0.45% SODIUM CHLORIDE 1,000 ML IV ×2 (01:46→17:54)
[2017-10-25] MEDS: ACETAMINOPHEN 325 MG/10.15 ML UDC GT ×2 (01:46→21:24)
[2017-10-25] MEDS: niMODipine 30 MG CAP PO ×6 (01:46→21:22)
[2017-10-25 02:09] LABS: BEDSIDE GLUCOSE 102 MG/DL (70-105)
[2017-10-25 05:43] LABS: HEMATOCRIT 27.5 % (36.0-47.0); HEMOGLOBIN 9.1 g/dl (12.0-16.0); MEAN CORPUSCULAR HEMOGLOBIN 29.6 pg (27.0-33.0); MEAN CORPUSCULAR HGB CONC 33.1 g/dl (32.0-36.5); MEAN CORPUSCULAR VOLUME 89.6 fl (80.0-96.0); PLATELET COUNT, AUTOMATED 166 10^3/uL (150-450); RED BLOOD COUNT 3.07 10^6/uL (4.00-5.40); RED CELL DISTRIBUTION WIDTH 15.2 % (11.5-14.5)
[2017-10-25 06:09] LABS: ANION GAP 6 MEQ/L (8-16); BLOOD UREA NITROGEN 12 MG/DL (7-18); CARBON DIOXIDE LEVEL 27 MEQ/L (21-32); CHLORIDE LEVEL 107 MEQ/L (98-107); CREATININE FOR GFR 0.52 MG/DL (0.55-1.02); GLOMERULAR FILTRATION RATE > 60.0 (>51); GLUCOSE, FASTING 218 MG/DL (70-105); MAGNESIUM LEVEL 2.1 MG/DL (1.8-2.4); POTASSIUM SERUM 3.9 MEQ/L (3.5-5.1); SODIUM LEVEL 140 MEQ/L (136-145)
[2017-10-25] MEDS: LISINOPRIL *2.5 MG* TAB PO (10:29)
[2017-10-25] MEDS: ASPIRIN 81 MG CHEW TABLET PEG (10:29)
[2017-10-25] MEDS: PARoxetine 20 MG TAB NG (10:30)
[2017-10-25] MEDS: URSODIOL 300 MG CAP PEG ×2 (10:30→21:23)
[2017-10-25] MEDS: LEVEMIR (INSULIN DETEMIR) 1 UNITS/0.01ML SC (10:30)
[2017-10-25] MEDS: ATORVASTATIN 20 MG TAB NG (21:22)
[2017-10-25 21:45] LABS: BEDSIDE GLUCOSE 212 MG/DL (70-105)
[2017-10-25 21:45] LABS: BEDSIDE GLUCOSE 260 MG/DL (70-105)
[2017-10-25 21:45] LABS: BEDSIDE GLUCOSE 279 MG/DL (70-105)
[2017-10-25 23:54] LABS: BEDSIDE GLUCOSE 183 MG/DL (70-105)
[2017-10-26] MEDS: HumaLOG INSULIN (NovoLOG) PER UNIT SC ×4 (00:28→18:29)
[2017-10-26] MEDS: niMODipine 30 MG CAP PO ×6 (02:24→21:44)
[2017-10-26 06:12] LABS: HEMOGLOBIN 10.3 g/dl (12.0-16.0); MEAN CORPUSCULAR HEMOGLOBIN 30.5 pg (27.0-33.0); MEAN CORPUSCULAR HGB CONC 33.2 g/dl (32.0-36.5); MEAN CORPUSCULAR VOLUME 91.7 fl (80.0-96.0); PLATELET COUNT, AUTOMATED 188 10^3/uL (150-450); RED BLOOD COUNT 3.38 10^6/uL (4.00-5.40); WHITE BLOOD COUNT 5.5 10^3/uL (4.0-10.0)
[2017-10-26 06:15] LABS: BEDSIDE GLUCOSE 281 MG/DL (70-105)
[2017-10-26 06:34] LABS: ANION GAP 7 MEQ/L (8-16); BLOOD UREA NITROGEN 11 MG/DL (7-18); CALCIUM LEVEL 7.7 MG/DL (8.5-10.1); CARBON DIOXIDE LEVEL 24 MEQ/L (21-32); CHLORIDE LEVEL 107 MEQ/L (98-107); GLOMERULAR FILTRATION RATE > 60.0 (>51); GLUCOSE, FASTING 280 MG/DL (70-105); POTASSIUM SERUM 4.5 MEQ/L (3.5-5.1); SODIUM LEVEL 138 MEQ/L (136-145)
[2017-10-26] MEDS: URSODIOL 300 MG CAP PEG ×2 (09:46→21:44)
[2017-10-26] MEDS: PARoxetine 20 MG TAB NG (09:47)
[2017-10-26] MEDS: ASPIRIN 81 MG CHEW TABLET PEG (09:47)
[2017-10-26] MEDS: LISINOPRIL *2.5 MG* TAB PO (09:47)
[2017-10-26] MEDS: LEVEMIR (INSULIN DETEMIR) 1 UNITS/0.01ML SC (09:47)
[2017-10-26] MEDS: D5W/0.45% SODIUM CHLORIDE 1,000 ML IV (10:56)
[2017-10-26] MEDS: ATORVASTATIN 20 MG TAB NG (21:44)
[2017-10-26 23:57] LABS: BEDSIDE GLUCOSE 257 MG/DL (70-105)
[2017-10-27] MEDS: HumaLOG INSULIN (NovoLOG) PER UNIT SC ×4 (00:13→17:37)
[2017-10-27] MEDS: niMODipine 30 MG CAP PO ×6 (01:59→21:48)
[2017-10-27] MEDS: D5W/0.45% SODIUM CHLORIDE 1,000 ML IV ×2 (03:01→21:48)
[2017-10-27 06:00] LABS: HEMATOCRIT 30.3 % (36.0-47.0); HEMOGLOBIN 10.1 g/dl (12.0-16.0); MEAN CORPUSCULAR HEMOGLOBIN 30.1 pg (27.0-33.0); MEAN CORPUSCULAR HGB CONC 33.3 g/dl (32.0-36.5); MEAN CORPUSCULAR VOLUME 90.4 fl (80.0-96.0); PLATELET COUNT, AUTOMATED 181 10^3/uL (150-450); RED BLOOD COUNT 3.35 10^6/uL (4.00-5.40); RED CELL DISTRIBUTION WIDTH 14.9 % (11.5-14.5); WHITE BLOOD COUNT 5.9 10^3/uL (4.0-10.0)
[2017-10-27 06:19] LABS: ANION GAP 9 MEQ/L (8-16); BLOOD UREA NITROGEN 12 MG/DL (7-18); CALCIUM LEVEL 7.9 MG/DL (8.5-10.1); CARBON DIOXIDE LEVEL 24 MEQ/L (21-32); CHLORIDE LEVEL 103 MEQ/L (98-107); CREATININE FOR GFR 0.65 MG/DL (0.55-1.02); GLOMERULAR FILTRATION RATE > 60.0 (>51); GLUCOSE, FASTING 382 MG/DL (70-105); MAGNESIUM LEVEL 1.9 MG/DL (1.8-2.4); POTASSIUM SERUM 4.9 MEQ/L (3.5-5.1); SODIUM LEVEL 136 MEQ/L (136-145)
[2017-10-27] MEDS: LEVEMIR (INSULIN DETEMIR) 1 UNITS/0.01ML SC (08:35)
[2017-10-27] MEDS: URSODIOL 300 MG CAP PEG ×2 (08:36→21:48)
[2017-10-27] MEDS: PARoxetine 20 MG TAB NG (08:36)
[2017-10-27] MEDS: LISINOPRIL *2.5 MG* TAB PO (08:36)
[2017-10-27] MEDS: ASPIRIN 81 MG CHEW TABLET PEG (08:36)
[2017-10-27] MEDS: ATORVASTATIN 20 MG TAB NG (21:48)
[2017-10-28] MEDS: HumaLOG INSULIN (NovoLOG) PER UNIT SC ×4 (01:04→18:24)
[2017-10-28] MEDS: niMODipine 30 MG CAP PO ×6 (01:41→22:02)
[2017-10-28] MEDS: LISINOPRIL *2.5 MG* TAB PO (08:48)
[2017-10-28] MEDS: URSODIOL 300 MG CAP PEG ×2 (08:48→22:02)
[2017-10-28] MEDS: PARoxetine 20 MG TAB NG (08:48)
[2017-10-28] MEDS: ASPIRIN 81 MG CHEW TABLET PEG (08:48)
[2017-10-28] MEDS: LEVEMIR (INSULIN DETEMIR) 1 UNITS/0.01ML SC (08:49)
[2017-10-28 11:39] LABS: BEDSIDE GLUCOSE 355 MG/DL (70-105)
[2017-10-28 11:39] LABS: BEDSIDE GLUCOSE 264 MG/DL (70-105)
[2017-10-28 11:39] LABS: BEDSIDE GLUCOSE 272 MG/DL (70-105)
[2017-10-28 11:39] LABS: BEDSIDE GLUCOSE 129 MG/DL (70-105)
[2017-10-28 11:39] LABS: BEDSIDE GLUCOSE 261 MG/DL (70-105)
[2017-10-28 11:39] LABS: BEDSIDE GLUCOSE 341 MG/DL (70-105)
[2017-10-28 11:40] LABS: BEDSIDE GLUCOSE 166 MG/DL (70-105)
[2017-10-28 11:40] LABS: BEDSIDE GLUCOSE 316 MG/DL (70-105)
[2017-10-28 11:40] LABS: BEDSIDE GLUCOSE 293 MG/DL (70-105)
[2017-10-28 12:06] LABS: BEDSIDE GLUCOSE 341 MG/DL (70-105)
[2017-10-28] MEDS: SALIVA SUBSTITUTE(MOUTHKOTE) BTL MT (14:21)
[2017-10-28 19:55] LABS: BEDSIDE GLUCOSE 222 MG/DL (70-105)
[2017-10-28] MEDS: ATORVASTATIN 20 MG TAB NG (22:02)
[2017-10-29 00:06] LABS: BEDSIDE GLUCOSE 131 MG/DL (70-105)
[2017-10-29] MEDS: HumaLOG INSULIN (NovoLOG) PER UNIT SC ×5 (00:22→23:53)
[2017-10-29] MEDS: niMODipine 30 MG CAP PO ×6 (02:11→21:00)
[2017-10-29 06:11] LABS: BEDSIDE GLUCOSE 277 MG/DL (70-105)
[2017-10-29] MEDS: PARoxetine 20 MG TAB NG (09:59)
[2017-10-29] MEDS: URSODIOL 300 MG CAP PEG ×2 (09:59→21:00)
[2017-10-29] MEDS: ASPIRIN 81 MG CHEW TABLET PEG (09:59)
[2017-10-29] MEDS: LISINOPRIL *2.5 MG* TAB PO (10:00)
[2017-10-29] MEDS: LEVEMIR (INSULIN DETEMIR) 1 UNITS/0.01ML SC (10:00)
[2017-10-29] MEDS: SUCRALFATE SUSP 1GM/10ML UD PO ×3 (12:07→23:52)
[2017-10-29] MEDS: PANTOPRAZOLE 40MG INJ (PROTONIX) (C9113) IV (12:07)
[2017-10-29 12:13] LABS: BEDSIDE GLUCOSE 339 MG/DL (70-105)
[2017-10-29 17:27] LABS: BEDSIDE GLUCOSE 254 MG/DL (70-105)
[2017-10-29] MEDS: ATORVASTATIN 20 MG TAB NG (21:00)
[2017-10-29 23:38] LABS: BEDSIDE GLUCOSE 126 MG/DL (70-105)
[2017-10-30] MEDS: niMODipine 30 MG CAP PO ×6 (03:04→21:27)
[2017-10-30] MEDS: HumaLOG INSULIN (NovoLOG) PER UNIT SC ×3 (06:02→18:16)
[2017-10-30] MEDS: SUCRALFATE SUSP 1GM/10ML UD PO ×3 (06:02→18:15)
[2017-10-30 06:16] LABS: BEDSIDE GLUCOSE 284 MG/DL (70-105)
[2017-10-30] MEDS: LISINOPRIL *2.5 MG* TAB PO (09:36)
[2017-10-30] MEDS: URSODIOL 300 MG CAP PEG ×2 (09:36→21:27)
[2017-10-30] MEDS: ASPIRIN 81 MG CHEW TABLET PEG (09:36)
[2017-10-30] MEDS: PARoxetine 20 MG TAB NG (09:37)
[2017-10-30] MEDS: LEVEMIR (INSULIN DETEMIR) 1 UNITS/0.01ML SC (09:38)
[2017-10-30 12:11] LABS: BEDSIDE GLUCOSE 327 MG/DL (70-105)
[2017-10-30] MEDS: PANTOPRAZOLE 40MG INJ (PROTONIX) (C9113) IV (12:11)
[2017-10-30 17:06] LABS: BEDSIDE GLUCOSE 223 MG/DL (70-105)
[2017-10-30] MEDS: ATORVASTATIN 20 MG TAB NG (21:27)
[2017-10-31 00:25] LABS: BEDSIDE GLUCOSE 298 MG/DL (70-105)
[2017-10-31] MEDS: SUCRALFATE SUSP 1GM/10ML UD PO ×4 (00:30→18:23)
[2017-10-31] MEDS: HumaLOG INSULIN (NovoLOG) PER UNIT SC ×4 (00:31→18:24)
[2017-10-31] MEDS: niMODipine 30 MG CAP PO ×6 (02:00→21:56)
[2017-10-31 06:11] LABS: BEDSIDE GLUCOSE 328 MG/DL (70-105)
[2017-10-31] MEDS: LEVEMIR (INSULIN DETEMIR) 1 UNITS/0.01ML SC (09:00)
[2017-10-31] MEDS: ASPIRIN 81 MG CHEW TABLET PEG (09:25)
[2017-10-31] MEDS: URSODIOL 300 MG CAP PEG ×2 (09:25→21:56)
[2017-10-31] MEDS: PARoxetine 20 MG TAB NG (09:25)
[2017-10-31] MEDS: LISINOPRIL *2.5 MG* TAB PO (09:27)
[2017-10-31 10:41] LABS: BASO % 0.2 % (0.0-1.0); EOS % 0.4 % (0.0-3.0); HEMATOCRIT 34.9 % (36.0-47.0); HEMOGLOBIN 11.5 g/dl (12.0-16.0); IMMATURE GRANULOCYTE % 0.3 % (0-0); LYMPH # 0.7 10^3/uL (1.5-4.5); LYMPH % 6.9 % (24.0-44.0); MEAN CORPUSCULAR HEMOGLOBIN 30.1 pg (27.0-33.0); MEAN CORPUSCULAR VOLUME 91.4 fl (80.0-96.0); MONO # 0.4 10^3/uL (0.0-0.8); MONO % 3.9 % (0.0-5.0); NEUTROPHILS # 9.1 10^3/uL (1.8-7.7); NEUTROPHILS % 88.3 % (36.0-66.0); PLATELET COUNT, AUTOMATED 244 10^3/uL (150-450); RED BLOOD COUNT 3.82 10^6/uL (4.00-5.40); RED CELL DISTRIBUTION WIDTH 15.2 % (11.5-14.5); WHITE BLOOD COUNT 10.3 10^3/uL (4.0-10.0)
[2017-10-31 11:09] LABS: ALBUMIN 2.3 GM/DL (3.2-5.2); ALBUMIN/GLOBULIN RATIO 0.46 (1.00-1.93); ALKALINE PHOSPHATASE 857 U/L (45-117); ALT/SGPT 22 U/L (12-78); ANION GAP 7 MEQ/L (8-16); AST/SGOT 29 U/L (7-37); BLOOD UREA NITROGEN 40 MG/DL (7-18); CALCIUM LEVEL 8.3 MG/DL (8.5-10.1); CARBON DIOXIDE LEVEL 27 MEQ/L (21-32); CHLORIDE LEVEL 102 MEQ/L (98-107); CREATININE FOR GFR 0.76 MG/DL (0.55-1.02); GLOMERULAR FILTRATION RATE > 60.0 (>51); GLUCOSE, FASTING 376 MG/DL (70-105); MAGNESIUM LEVEL 2.2 MG/DL (1.8-2.4); POTASSIUM SERUM 4.9 MEQ/L (3.5-5.1); SODIUM LEVEL 136 MEQ/L (136-145); TOTAL PROTEIN 7.3 GM/DL (6.4-8.2)
[2017-10-31] MEDS: PANTOPRAZOLE 40MG INJ (PROTONIX) (C9113) IV (12:37)
[2017-10-31 18:30] LABS: HEMATOCRIT 33.7 % (36.0-47.0); HEMOGLOBIN 11.2 g/dl (12.0-16.0)
[2017-10-31] MEDS: ATORVASTATIN 20 MG TAB NG (21:55)
[2017-11-01 00:20] LABS: HEMATOCRIT 34.3 % (36.0-47.0); HEMOGLOBIN 11.3 g/dl (12.0-16.0)
[2017-11-01 00:29] LABS: BEDSIDE GLUCOSE 244 MG/DL (70-105)
[2017-11-01] MEDS: SUCRALFATE SUSP 1GM/10ML UD PO ×4 (00:44→18:25)
[2017-11-01] MEDS: HumaLOG INSULIN (NovoLOG) PER UNIT SC ×4 (00:44→18:25)
[2017-11-01] MEDS: niMODipine 30 MG CAP PO ×6 (02:40→21:43)
[2017-11-01 06:02] LABS: BASO % 0.3 % (0.0-1.0); EOS # 0.2 10^3/uL (0.0-0.50); EOS % 1.5 % (0.0-3.0); HEMATOCRIT 35.9 % (36.0-47.0); HEMOGLOBIN 11.7 g/dl (12.0-16.0); IMMATURE GRANULOCYTE % 0.3 % (0-0); LYMPH # 1.1 10^3/uL (1.5-4.5); MEAN CORPUSCULAR HEMOGLOBIN 29.8 pg (27.0-33.0); MEAN CORPUSCULAR HGB CONC 32.6 g/dl (32.0-36.5); MEAN CORPUSCULAR VOLUME 91.6 fl (80.0-96.0); MONO # 0.4 10^3/uL (0.0-0.8); MONO % 3.6 % (0.0-5.0); NEUTROPHILS % 84.3 % (36.0-66.0); PLATELET COUNT, AUTOMATED 292 10^3/uL (150-450); RED BLOOD COUNT 3.92 10^6/uL (4.00-5.40); RED CELL DISTRIBUTION WIDTH 15.2 % (11.5-14.5); WHITE BLOOD COUNT 10.6 10^3/uL (4.0-10.0)
[2017-11-01 06:26] LABS: ALBUMIN 2.1 GM/DL (3.2-5.2); ALBUMIN/GLOBULIN RATIO 0.36 (1.00-1.93); ALKALINE PHOSPHATASE 780 U/L (45-117); ALT/SGPT 23 U/L (12-78); ANION GAP 11 MEQ/L (8-16); AST/SGOT 35 U/L (7-37); BILIRUBIN,TOTAL 0.8 MG/DL (0.2-1.0); BLOOD UREA NITROGEN 46 MG/DL (7-18); CALCIUM LEVEL 8.9 MG/DL (8.5-10.1); CARBON DIOXIDE LEVEL 22 MEQ/L (21-32); CHLORIDE LEVEL 103 MEQ/L (98-107); CREATININE FOR GFR 0.75 MG/DL (0.55-1.02); GLOMERULAR FILTRATION RATE > 60.0 (>51); GLUCOSE, FASTING 357 MG/DL (70-105); MAGNESIUM LEVEL 2.3 MG/DL (1.8-2.4); POTASSIUM SERUM 4.8 MEQ/L (3.5-5.1); SODIUM LEVEL 136 MEQ/L (136-145)
[2017-11-01] MEDS: LEVEMIR (INSULIN DETEMIR) 1 UNITS/0.01ML SC ×2 (09:00→22:03)
[2017-11-01] MEDS: ASPIRIN 81 MG CHEW TABLET PEG (09:00)
[2017-11-01] MEDS: URSODIOL 300 MG CAP PEG ×2 (09:00→21:43)
[2017-11-01] MEDS: PARoxetine 20 MG TAB NG (09:00)
[2017-11-01] MEDS: LISINOPRIL *2.5 MG* TAB PO (09:02)
[2017-11-01] MEDS: PANTOPRAZOLE 40MG INJ (PROTONIX) (C9113) IV (10:49)
[2017-11-01 12:11] LABS: BEDSIDE GLUCOSE 361 MG/DL (70-105)
[2017-11-01] MEDS: NS 1,000 ML IV (13:07)
[2017-11-01 18:24] LABS: BEDSIDE GLUCOSE 308 MG/DL (70-105)
[2017-11-01] MEDS: ATORVASTATIN 20 MG TAB NG (21:43)
[2017-11-02] MEDS: SUCRALFATE SUSP 1GM/10ML UD PO ×4 (00:29→17:43)
[2017-11-02] MEDS: HumaLOG INSULIN (NovoLOG) PER UNIT SC ×4 (00:29→18:08)
[2017-11-02 01:19] LABS: BEDSIDE GLUCOSE 270 MG/DL (70-105)
[2017-11-02] MEDS: niMODipine 30 MG CAP PO ×6 (01:35→21:37)
[2017-11-02 06:39] LABS: BEDSIDE GLUCOSE 168 MG/DL (70-105)
[2017-11-02 07:57] LABS: BASO % 0.4 % (0.0-1.0); EOS # 0.4 10^3/uL (0.0-0.50); EOS % 4.1 % (0.0-3.0); HEMATOCRIT 32.1 % (36.0-47.0); HEMOGLOBIN 10.6 g/dl (12.0-16.0); IMMATURE GRANULOCYTE % 0.2 % (0-0); LYMPH # 1.6 10^3/uL (1.5-4.5); LYMPH % 17.7 % (24.0-44.0); MEAN CORPUSCULAR HEMOGLOBIN 29.9 pg (27.0-33.0); MEAN CORPUSCULAR VOLUME 90.7 fl (80.0-96.0); MONO # 0.4 10^3/uL (0.0-0.8); MONO % 4.3 % (0.0-5.0); NEUTROPHILS # 6.6 10^3/uL (1.8-7.7); NEUTROPHILS % 73.3 % (36.0-66.0); PLATELET COUNT, AUTOMATED 246 10^3/uL (150-450); RED BLOOD COUNT 3.54 10^6/uL (4.00-5.40); RED CELL DISTRIBUTION WIDTH 15.4 % (11.5-14.5); WHITE BLOOD COUNT 8.9 10^3/uL (4.0-10.0)
[2017-11-02 08:32] LABS: ALBUMIN 1.9 GM/DL (3.2-5.2); ALBUMIN/GLOBULIN RATIO 0.41 (1.00-1.93); ALKALINE PHOSPHATASE 714 U/L (45-117); ALT/SGPT 23 U/L (12-78); ANION GAP 6 MEQ/L (8-16); AST/SGOT 29 U/L (7-37); BILIRUBIN,TOTAL 0.5 MG/DL (0.2-1.0); BLOOD UREA NITROGEN 45 MG/DL (7-18); CALCIUM LEVEL 8.3 MG/DL (8.5-10.1); CARBON DIOXIDE LEVEL 28 MEQ/L (21-32); CHLORIDE LEVEL 108 MEQ/L (98-107); GLOMERULAR FILTRATION RATE > 60.0 (>51); GLUCOSE, FASTING 174 MG/DL (70-105); MAGNESIUM LEVEL 2.2 MG/DL (1.8-2.4); SODIUM LEVEL 142 MEQ/L (136-145); TOTAL PROTEIN 6.5 GM/DL (6.4-8.2)
[2017-11-02] MEDS: URSODIOL 300 MG CAP PEG ×2 (09:10→21:37)
[2017-11-02] MEDS: PARoxetine 20 MG TAB NG (09:10)
[2017-11-02] MEDS: ASPIRIN 81 MG CHEW TABLET PEG (09:10)
[2017-11-02] MEDS: LISINOPRIL *2.5 MG* TAB PO (09:11)
[2017-11-02] MEDS: LEVEMIR (INSULIN DETEMIR) 1 UNITS/0.01ML SC ×2 (09:11→21:37)
[2017-11-02] MEDS: PANTOPRAZOLE 40MG INJ (PROTONIX) (C9113) IV (10:44)
[2017-11-02 11:39] LABS: BEDSIDE GLUCOSE 224 MG/DL (70-105)
[2017-11-02 14:18] LABS: HEMATOCRIT 33.1 % (36.0-47.0); HEMOGLOBIN 10.8 g/dl (12.0-16.0)
[2017-11-02 18:11] LABS: HEMATOCRIT 30.9 % (36.0-47.0); HEMOGLOBIN 10.2 g/dl (12.0-16.0)
[2017-11-02 18:24] LABS: BEDSIDE GLUCOSE 206 MG/DL (70-105)
[2017-11-02] MEDS: ATORVASTATIN 20 MG TAB NG (21:37)
[2017-11-03] MEDS: SUCRALFATE SUSP 1GM/10ML UD PO ×5 (00:08→23:51)
[2017-11-03] MEDS: HumaLOG INSULIN (NovoLOG) PER UNIT SC ×5 (00:08→23:51)
[2017-11-03 00:09] LABS: BEDSIDE GLUCOSE 166 MG/DL (70-105)
[2017-11-03] MEDS: niMODipine 30 MG CAP PO ×6 (02:45→21:17)
[2017-11-03 03:23] LABS: HEMATOCRIT 31.4 % (36.0-47.0); HEMOGLOBIN 10.3 g/dl (12.0-16.0)
[2017-11-03 06:23] LABS: BEDSIDE GLUCOSE 121 MG/DL (70-105)
[2017-11-03] MEDS: URSODIOL 300 MG CAP PEG ×2 (09:05→21:17)
[2017-11-03] MEDS: LEVEMIR (INSULIN DETEMIR) 1 UNITS/0.01ML SC ×2 (09:05→21:18)
[2017-11-03] MEDS: ASPIRIN 81 MG CHEW TABLET PEG (09:05)
[2017-11-03] MEDS: PARoxetine 20 MG TAB NG (09:05)
[2017-11-03 09:38] LABS: BASO % 0.6 % (0.0-1.0); EOS # 0.4 10^3/uL (0.0-0.50); EOS % 5.9 % (0.0-3.0); HEMATOCRIT 30.7 % (36.0-47.0); IMMATURE GRANULOCYTE % 0.3 % (0-0); LYMPH # 1.4 10^3/uL (1.5-4.5); LYMPH % 21.9 % (24.0-44.0); MEAN CORPUSCULAR HEMOGLOBIN 29.9 pg (27.0-33.0); MEAN CORPUSCULAR HGB CONC 32.6 g/dl (32.0-36.5); MEAN CORPUSCULAR VOLUME 91.9 fl (80.0-96.0); MONO # 0.4 10^3/uL (0.0-0.8); MONO % 5.6 % (0.0-5.0); NEUTROPHILS # 4.2 10^3/uL (1.8-7.7); NEUTROPHILS % 65.7 % (36.0-66.0); PLATELET COUNT, AUTOMATED 219 10^3/uL (150-450); RED BLOOD COUNT 3.34 10^6/uL (4.00-5.40); RED CELL DISTRIBUTION WIDTH 15.2 % (11.5-14.5); WHITE BLOOD COUNT 6.4 10^3/uL (4.0-10.0)
[2017-11-03 09:54] LABS: ALBUMIN/GLOBULIN RATIO 0.49 (1.00-1.93); ALKALINE PHOSPHATASE 652 U/L (45-117); ALT/SGPT 23 U/L (12-78); ANION GAP 8 MEQ/L (8-16); AST/SGOT 35 U/L (7-37); BILIRUBIN,TOTAL 0.5 MG/DL (0.2-1.0); BLOOD UREA NITROGEN 35 MG/DL (7-18); CALCIUM LEVEL 7.9 MG/DL (8.5-10.1); CARBON DIOXIDE LEVEL 26 MEQ/L (21-32); CHLORIDE LEVEL 107 MEQ/L (98-107); CREATININE FOR GFR 0.55 MG/DL (0.55-1.02); GLOMERULAR FILTRATION RATE > 60.0 (>51); GLUCOSE, FASTING 168 MG/DL (70-105); MAGNESIUM LEVEL 2.1 MG/DL (1.8-2.4); POTASSIUM SERUM 4.4 MEQ/L (3.5-5.1); SODIUM LEVEL 141 MEQ/L (136-145); TOTAL PROTEIN 6.1 GM/DL (6.4-8.2)
[2017-11-03] MEDS: PANTOPRAZOLE 40MG INJ (PROTONIX) (C9113) IV (10:12)
[2017-11-03 12:27] LABS: BEDSIDE GLUCOSE 204 MG/DL (70-105)
[2017-11-03 17:07] LABS: BEDSIDE GLUCOSE 129 MG/DL (70-105)
[2017-11-03 19:28] LABS: HEMATOCRIT 30.4 % (36.0-47.0)
[2017-11-03] MEDS: ATORVASTATIN 20 MG TAB NG (21:17)
[2017-11-03] MEDS: hydrOXYzine 25 MG TAB PEG (22:03)
[2017-11-03 23:54] LABS: BEDSIDE GLUCOSE 269 MG/DL (70-105)
[2017-11-04 00:48] LABS: HEMATOCRIT 30.9 % (36.0-47.0); HEMOGLOBIN 10.2 g/dl (12.0-16.0)
[2017-11-04] MEDS: niMODipine 30 MG CAP PO ×6 (01:26→22:07)
[2017-11-04 06:01] LABS: BEDSIDE GLUCOSE 248 MG/DL (70-105)
[2017-11-04] MEDS: SUCRALFATE SUSP 1GM/10ML UD PO ×3 (06:04→19:06)
[2017-11-04] MEDS: HumaLOG INSULIN (NovoLOG) PER UNIT SC ×3 (06:05→19:06)
[2017-11-04 06:28] LABS: BASO % 0.6 % (0.0-1.0); EOS # 0.3 10^3/uL (0.0-0.50); EOS % 4.9 % (0.0-3.0); HEMATOCRIT 30.2 % (36.0-47.0); HEMOGLOBIN 9.9 g/dl (12.0-16.0); IMMATURE GRANULOCYTE % 0.3 % (0-0); LYMPH # 1.3 10^3/uL (1.5-4.5); LYMPH % 19.8 % (24.0-44.0); MEAN CORPUSCULAR HGB CONC 32.8 g/dl (32.0-36.5); MEAN CORPUSCULAR VOLUME 91.5 fl (80.0-96.0); MONO # 0.4 10^3/uL (0.0-0.8); MONO % 6.1 % (0.0-5.0); NEUTROPHILS # 4.3 10^3/uL (1.8-7.7); NEUTROPHILS % 68.3 % (36.0-66.0); PLATELET COUNT, AUTOMATED 198 10^3/uL (150-450); RED CELL DISTRIBUTION WIDTH 14.7 % (11.5-14.5); WHITE BLOOD COUNT 6.4 10^3/uL (4.0-10.0)
[2017-11-04 06:51] LABS: ALBUMIN 1.9 GM/DL (3.2-5.2); ALBUMIN/GLOBULIN RATIO 0.38 (1.00-1.93); ALKALINE PHOSPHATASE 664 U/L (45-117); ALT/SGPT 23 U/L (12-78); ANION GAP 6 MEQ/L (8-16); AST/SGOT 33 U/L (7-37); BILIRUBIN,TOTAL 0.6 MG/DL (0.2-1.0); BLOOD UREA NITROGEN 29 MG/DL (7-18); CALCIUM LEVEL 8.4 MG/DL (8.5-10.1); CARBON DIOXIDE LEVEL 27 MEQ/L (21-32); CHLORIDE LEVEL 105 MEQ/L (98-107); CREATININE FOR GFR 0.62 MG/DL (0.55-1.02); GLOMERULAR FILTRATION RATE > 60.0 (>51); GLUCOSE, FASTING 249 MG/DL (70-105); POTASSIUM SERUM 4.3 MEQ/L (3.5-5.1); SODIUM LEVEL 138 MEQ/L (136-145); TOTAL PROTEIN 6.9 GM/DL (6.4-8.2)
[2017-11-04] MEDS: ASPIRIN 81 MG CHEW TABLET PEG (08:12)
[2017-11-04] MEDS: URSODIOL 300 MG CAP PEG ×2 (08:12→22:07)
[2017-11-04] MEDS: PARoxetine 20 MG TAB NG (08:12)
[2017-11-04] MEDS: LEVEMIR (INSULIN DETEMIR) 1 UNITS/0.01ML SC (08:13)
[2017-11-04] MEDS: PANTOPRAZOLE 40MG INJ (PROTONIX) (C9113) IV (11:43)
[2017-11-04 12:38] LABS: BEDSIDE GLUCOSE 215 MG/DL (70-105)
[2017-11-04 12:38] LABS: BEDSIDE GLUCOSE 453 MG/DL (70-105)
[2017-11-04 12:38] LABS: BEDSIDE GLUCOSE 285 MG/DL (70-105)
[2017-11-04 12:42] LABS: HEMATOCRIT 31.9 % (36.0-47.0); HEMOGLOBIN 10.6 g/dl (12.0-16.0)
[2017-11-04 18:50] LABS: HEMATOCRIT 32.1 % (36.0-47.0); HEMOGLOBIN 10.7 g/dl (12.0-16.0)
[2017-11-04] MEDS: ATORVASTATIN 20 MG TAB NG (22:06)
[2017-11-05] MEDS: HumaLOG INSULIN (NovoLOG) PER UNIT SC ×4 (00:17→18:36)
[2017-11-05] MEDS: SUCRALFATE SUSP 1GM/10ML UD PO ×4 (00:17→18:35)
[2017-11-05] MEDS: niMODipine 30 MG CAP PO ×6 (02:26→21:13)
[2017-11-05 06:33] LABS: BASO % 0.5 % (0.0-1.0); EOS # 0.4 10^3/uL (0.0-0.50); EOS % 6.3 % (0.0-3.0); HEMATOCRIT 31.1 % (36.0-47.0); HEMOGLOBIN 10.2 g/dl (12.0-16.0); IMMATURE GRANULOCYTE % 0.3 % (0-0); LYMPH # 1.7 10^3/uL (1.5-4.5); LYMPH % 27.3 % (24.0-44.0); MEAN CORPUSCULAR HEMOGLOBIN 30.1 pg (27.0-33.0); MEAN CORPUSCULAR HGB CONC 32.8 g/dl (32.0-36.5); MEAN CORPUSCULAR VOLUME 91.7 fl (80.0-96.0); MONO # 0.3 10^3/uL (0.0-0.8); NEUTROPHILS # 3.8 10^3/uL (1.8-7.7); NEUTROPHILS % 60.6 % (36.0-66.0); PLATELET COUNT, AUTOMATED 208 10^3/uL (150-450); RED BLOOD COUNT 3.39 10^6/uL (4.00-5.40); RED CELL DISTRIBUTION WIDTH 14.7 % (11.5-14.5); WHITE BLOOD COUNT 6.2 10^3/uL (4.0-10.0)
[2017-11-05 06:49] LABS: ALBUMIN 1.9 GM/DL (3.2-5.2); ALKALINE PHOSPHATASE 604 U/L (45-117); ALT/SGPT 23 U/L (12-78); ANION GAP 7 MEQ/L (8-16); AST/SGOT 31 U/L (7-37); BILIRUBIN,TOTAL 0.8 MG/DL (0.2-1.0); BLOOD UREA NITROGEN 26 MG/DL (7-18); CALCIUM LEVEL 8.7 MG/DL (8.5-10.1); CARBON DIOXIDE LEVEL 29 MEQ/L (21-32); CHLORIDE LEVEL 103 MEQ/L (98-107); GLOMERULAR FILTRATION RATE > 60.0 (>51); GLUCOSE, FASTING 272 MG/DL (70-105); POTASSIUM SERUM 4.2 MEQ/L (3.5-5.1); SODIUM LEVEL 139 MEQ/L (136-145); TOTAL PROTEIN 6.7 GM/DL (6.4-8.2)
[2017-11-05] MEDS: PANTOPRAZOLE 40MG INJ (PROTONIX) (C9113) IV (10:01)
[2017-11-05] MEDS: URSODIOL 300 MG CAP PEG ×2 (10:01→21:13)
[2017-11-05] MEDS: ASPIRIN 81 MG CHEW TABLET PEG (10:01)
[2017-11-05] MEDS: PARoxetine 20 MG TAB NG (10:02)
[2017-11-05] MEDS: LEVEMIR (INSULIN DETEMIR) 1 UNITS/0.01ML SC ×2 (10:02→21:14)
[2017-11-05 12:00] LABS: BEDSIDE GLUCOSE 209 MG/DL (70-105)
[2017-11-05 12:00] LABS: BEDSIDE GLUCOSE 320 MG/DL (70-105)
[2017-11-05 12:00] LABS: BEDSIDE GLUCOSE 190 MG/DL (70-105)
[2017-11-05 12:00] LABS: BEDSIDE GLUCOSE 263 MG/DL (70-105)
[2017-11-05 12:07] LABS: BEDSIDE GLUCOSE 291 MG/DL (70-105)
[2017-11-05] MEDS: ATORVASTATIN 20 MG TAB NG (21:13)
[2017-11-06] MEDS: SUCRALFATE SUSP 1GM/10ML UD PO ×4 (00:29→18:24)
[2017-11-06] MEDS: HumaLOG INSULIN (NovoLOG) PER UNIT SC ×4 (00:30→18:24)
[2017-11-06] MEDS: niMODipine 30 MG CAP PO ×6 (02:27→21:26)
[2017-11-06 06:49] LABS: BASO % 0.4 % (0.0-1.0); EOS # 0.4 10^3/uL (0.0-0.50); EOS % 5.8 % (0.0-3.0); HEMOGLOBIN 10.5 g/dl (12.0-16.0); IMMATURE GRANULOCYTE % 0.1 % (0-0); LYMPH # 1.8 10^3/uL (1.5-4.5); MEAN CORPUSCULAR HEMOGLOBIN 29.7 pg (27.0-33.0); MEAN CORPUSCULAR HGB CONC 32.8 g/dl (32.0-36.5); MEAN CORPUSCULAR VOLUME 90.7 fl (80.0-96.0); MONO # 0.4 10^3/uL (0.0-0.8); MONO % 5.3 % (0.0-5.0); NEUTROPHILS # 4.2 10^3/uL (1.8-7.7); NEUTROPHILS % 62.4 % (36.0-66.0); PLATELET COUNT, AUTOMATED 220 10^3/uL (150-450); RED BLOOD COUNT 3.53 10^6/uL (4.00-5.40); RED CELL DISTRIBUTION WIDTH 14.8 % (11.5-14.5); WHITE BLOOD COUNT 6.8 10^3/uL (4.0-10.0)
[2017-11-06 07:05] LABS: ALBUMIN/GLOBULIN RATIO 0.42 (1.00-1.93); ALKALINE PHOSPHATASE 634 U/L (45-117); ALT/SGPT 25 U/L (12-78); ANION GAP 6 MEQ/L (8-16); AST/SGOT 35 U/L (7-37); BILIRUBIN,TOTAL 0.6 MG/DL (0.2-1.0); BLOOD UREA NITROGEN 26 MG/DL (7-18); CALCIUM LEVEL 8.4 MG/DL (8.5-10.1); CARBON DIOXIDE LEVEL 29 MEQ/L (21-32); CHLORIDE LEVEL 103 MEQ/L (98-107); CREATININE FOR GFR 0.59 MG/DL (0.55-1.02); GLOMERULAR FILTRATION RATE > 60.0 (>51); GLUCOSE, FASTING 192 MG/DL (70-105); SODIUM LEVEL 138 MEQ/L (136-145); TOTAL PROTEIN 6.8 GM/DL (6.4-8.2)
[2017-11-06] MEDS: PANTOPRAZOLE 40MG INJ (PROTONIX) (C9113) IV (10:03)
[2017-11-06] MEDS: ASPIRIN 81 MG CHEW TABLET PEG (10:04)
[2017-11-06] MEDS: URSODIOL 300 MG CAP PEG ×2 (10:04→21:00)
[2017-11-06] MEDS: PARoxetine 20 MG TAB NG (10:04)
[2017-11-06] MEDS: LEVEMIR (INSULIN DETEMIR) 1 UNITS/0.01ML SC ×2 (10:04→21:00)
[2017-11-06 12:04] LABS: BEDSIDE GLUCOSE 181 MG/DL (70-105)
[2017-11-06] MEDS: ATORVASTATIN 20 MG TAB NG (21:26)
[2017-11-07] MEDS: HumaLOG INSULIN (NovoLOG) PER UNIT SC ×4 (00:47→17:58)
[2017-11-07] MEDS: SUCRALFATE SUSP 1GM/10ML UD PO ×4 (00:47→17:58)
[2017-11-07] MEDS: niMODipine 30 MG CAP PO ×6 (01:18→22:08)
[2017-11-07] MEDS: DEXTROSE 50% 50 ML SYRINGE IV (06:28)
[2017-11-07 06:45] LABS: BASO # 0.1 10^3/uL (0.0-0.2); BASO % 0.6 % (0.0-1.0); EOS # 0.4 10^3/uL (0.0-0.50); EOS % 5.1 % (0.0-3.0); HEMATOCRIT 35.1 % (36.0-47.0); HEMOGLOBIN 11.7 g/dl (12.0-16.0); IMMATURE GRANULOCYTE % 0.3 % (0-0); LYMPH # 1.9 10^3/uL (1.5-4.5); LYMPH % 24.9 % (24.0-44.0); MEAN CORPUSCULAR HEMOGLOBIN 30.1 pg (27.0-33.0); MEAN CORPUSCULAR HGB CONC 33.3 g/dl (32.0-36.5); MEAN CORPUSCULAR VOLUME 90.2 fl (80.0-96.0); MONO # 0.4 10^3/uL (0.0-0.8); NEUTROPHILS % 64.1 % (36.0-66.0); PLATELET COUNT, AUTOMATED 250 10^3/uL (150-450); RED BLOOD COUNT 3.89 10^6/uL (4.00-5.40); WHITE BLOOD COUNT 7.8 10^3/uL (4.0-10.0)
[2017-11-07 06:59] LABS: BEDSIDE GLUCOSE 155 MG/DL (70-105)
[2017-11-07 06:59] LABS: BEDSIDE GLUCOSE 184 MG/DL (70-105)
[2017-11-07 06:59] LABS: BEDSIDE GLUCOSE 145 MG/DL (70-105)
[2017-11-07 06:59] LABS: BEDSIDE GLUCOSE 130 MG/DL (70-105)
[2017-11-07 06:59] LABS: BEDSIDE GLUCOSE 175 MG/DL (70-105)
[2017-11-07 06:59] LABS: BEDSIDE GLUCOSE 59 MG/DL (70-105)
[2017-11-07 07:15] LABS: ALBUMIN 2.1 GM/DL (3.2-5.2); ALBUMIN/GLOBULIN RATIO 0.43 (1.00-1.93); ALKALINE PHOSPHATASE 651 U/L (45-117); ALT/SGPT 25 U/L (12-78); ANION GAP 4 MEQ/L (8-16); AST/SGOT 37 U/L (7-37); BILIRUBIN,TOTAL 0.6 MG/DL (0.2-1.0); BLOOD UREA NITROGEN 28 MG/DL (7-18); CALCIUM LEVEL 8.4 MG/DL (8.5-10.1); CARBON DIOXIDE LEVEL 32 MEQ/L (21-32); CHLORIDE LEVEL 106 MEQ/L (98-107); CREATININE FOR GFR 0.56 MG/DL (0.55-1.02); GLOMERULAR FILTRATION RATE > 60.0 (>51); GLUCOSE, FASTING 58 MG/DL (70-105); MAGNESIUM LEVEL 2.4 MG/DL (1.8-2.4); POTASSIUM SERUM 3.7 MEQ/L (3.5-5.1); SODIUM LEVEL 142 MEQ/L (136-145)
[2017-11-07] MEDS: ASPIRIN 81 MG CHEW TABLET PEG (10:16)
[2017-11-07] MEDS: PARoxetine 20 MG TAB NG (10:16)
[2017-11-07] MEDS: URSODIOL 300 MG CAP PEG ×2 (10:16→22:08)
[2017-11-07] MEDS: PANTOPRAZOLE 40MG INJ (PROTONIX) (C9113) IV (10:17)
[2017-11-07] MEDS: LEVEMIR (INSULIN DETEMIR) 1 UNITS/0.01ML SC ×2 (10:18→22:09)
[2017-11-07] MEDS: GASTROGRAFIN SOLUTION 30ML (Q9963) PO (11:31)
[2017-11-07] MEDS: GASTROGRAFIN SOLUTION 30ML PO (12:22)
[2017-11-07] MEDS ORDERED: ISOVUE-370 76% 100ML VIAL (Q9967) As Ordered (13:31)
[2017-11-07 15:06] LABS: BEDSIDE GLUCOSE 204 MG/DL (70-105)
[2017-11-07 16:03] LABS: BEDSIDE GLUCOSE 164 MG/DL (70-105)
[2017-11-07] MEDS: ATORVASTATIN 20 MG TAB NG (22:07)
[2017-11-08 00:12] LABS: BEDSIDE GLUCOSE 80 MG/DL (70-105)
[2017-11-08] MEDS: niMODipine 30 MG CAP PO ×7 (01:00→21:53)
[2017-11-08] MEDS: SUCRALFATE SUSP 1GM/10ML UD PO ×5 (01:00→23:39)
[2017-11-08] MEDS: HumaLOG INSULIN (NovoLOG) PER UNIT SC ×5 (05:45→23:40)
[2017-11-08] MEDS: LEVEMIR (INSULIN DETEMIR) 1 UNITS/0.01ML SC ×2 (09:00→21:54)
[2017-11-08] MEDS: ASPIRIN 81 MG CHEW TABLET PEG (09:15)
[2017-11-08] MEDS: URSODIOL 300 MG CAP PEG ×2 (09:15→21:53)
[2017-11-08] MEDS: PARoxetine 20 MG TAB NG (09:15)
[2017-11-08] MEDS: LANSOPRAZOLE SUSPENSION 30 MG/10 ML ORAL SYRINGE (FIRST-LANSOPRAZOLE) GT (09:16)
[2017-11-08 12:10] LABS: BEDSIDE GLUCOSE 187 MG/DL (70-105)
[2017-11-08 20:54] LABS: BEDSIDE GLUCOSE 136 MG/DL (70-105)
[2017-11-08 20:54] LABS: BEDSIDE GLUCOSE 152 MG/DL (70-105)
[2017-11-08 20:54] LABS: BEDSIDE GLUCOSE 83 MG/DL (70-105)
[2017-11-08] MEDS: ATORVASTATIN 20 MG TAB NG (21:53)
[2017-11-09] MEDS: niMODipine 30 MG CAP PO ×6 (02:07→22:04)
[2017-11-09] MEDS: SUCRALFATE SUSP 1GM/10ML UD PO ×3 (05:41→17:31)
[2017-11-09] MEDS: HumaLOG INSULIN (NovoLOG) PER UNIT SC ×3 (05:42→17:31)
[2017-11-09] MEDS: PARoxetine 20 MG TAB NG (09:36)
[2017-11-09] MEDS: ASPIRIN 81 MG CHEW TABLET PEG (09:36)
[2017-11-09] MEDS: URSODIOL 300 MG CAP PEG ×2 (09:36→22:04)
[2017-11-09] MEDS: LANSOPRAZOLE SUSPENSION 30 MG/10 ML ORAL SYRINGE (FIRST-LANSOPRAZOLE) GT (09:37)
[2017-11-09] MEDS: LEVEMIR (INSULIN DETEMIR) 1 UNITS/0.01ML SC ×2 (09:37→22:05)
[2017-11-09 12:14] LABS: BEDSIDE GLUCOSE 270 MG/DL (70-105)
[2017-11-09 12:14] LABS: BEDSIDE GLUCOSE 281 MG/DL (70-105)
[2017-11-09 12:14] LABS: BEDSIDE GLUCOSE 226 MG/DL (70-105)
[2017-11-09] MEDS: ATORVASTATIN 20 MG TAB NG (22:04)
[2017-11-10] MEDS: HumaLOG INSULIN (NovoLOG) PER UNIT SC ×4 (00:24→18:28)
[2017-11-10] MEDS: SUCRALFATE SUSP 1GM/10ML UD PO ×4 (00:26→18:28)
[2017-11-10] MEDS: niMODipine 30 MG CAP PO ×6 (02:26→20:49)
[2017-11-10] MEDS: URSODIOL 300 MG CAP PEG ×2 (09:19→20:49)
[2017-11-10] MEDS: PARoxetine 20 MG TAB NG (09:19)
[2017-11-10] MEDS: ASPIRIN 81 MG CHEW TABLET PEG (09:19)
[2017-11-10] MEDS: LANSOPRAZOLE SUSPENSION 30 MG/10 ML ORAL SYRINGE (FIRST-LANSOPRAZOLE) GT (09:19)
[2017-11-10] MEDS: LEVEMIR (INSULIN DETEMIR) 1 UNITS/0.01ML SC ×2 (09:21→20:50)
[2017-11-10] MEDS: ACETAMINOPHEN 325 MG/10.15 ML UDC GT (18:42)
[2017-11-10] MEDS: ATORVASTATIN 20 MG TAB NG (20:49)
[2017-11-11] MEDS: SUCRALFATE SUSP 1GM/10ML UD PO ×2 (00:23→05:55)
[2017-11-11] MEDS: HumaLOG INSULIN (NovoLOG) PER UNIT SC ×2 (00:24→05:46)
[2017-11-11 00:27] LABS: BEDSIDE GLUCOSE 127 MG/DL (70-105)
[2017-11-11 00:27] LABS: BEDSIDE GLUCOSE 177 MG/DL (70-105)
[2017-11-11 00:27] LABS: BEDSIDE GLUCOSE 189 MG/DL (70-105)
[2017-11-11 00:27] LABS: BEDSIDE GLUCOSE 155 MG/DL (70-105)
[2017-11-11 00:27] LABS: BEDSIDE GLUCOSE 203 MG/DL (70-105)
[2017-11-11 00:27] LABS: BEDSIDE GLUCOSE 197 MG/DL (70-105)
[2017-11-11] MEDS: niMODipine 30 MG CAP PO ×3 (02:21→09:47)
[2017-11-11] MEDS: LANSOPRAZOLE SUSPENSION 30 MG/10 ML ORAL SYRINGE (FIRST-LANSOPRAZOLE) GT (09:47)
[2017-11-11] MEDS: ASPIRIN 81 MG CHEW TABLET PEG (09:47)
[2017-11-11] MEDS: PARoxetine 20 MG TAB NG (09:47)
[2017-11-11] MEDS: URSODIOL 300 MG CAP PEG (09:47)
[2017-11-11] MEDS: LEVEMIR (INSULIN DETEMIR) 1 UNITS/0.01ML SC (09:48)
[2017-11-11 11:46] LABS: BEDSIDE GLUCOSE 189 MG/DL (70-105)
[2017-11-11 11:46] LABS: BEDSIDE GLUCOSE 227 MG/DL (70-105)
[2017-11-11 16:19] LABS: BEDSIDE GLUCOSE 160 MG/DL (70-105)
[2017-11-11 16:19] LABS: BEDSIDE GLUCOSE 83 MG/DL (70-105)
== END 2017-11-11 10:11 | DRG 57 ==
LOC: M PCU 10-22 22:59 → M MSPAV 10-24 15:36
PROC: 0DH64UZ Insertion of Feeding Device into Stomach, Percutaneous Endoscopic Approach (ICD-10-PCS; principal; 2017-10-22 08:34)
DX: S06.2X0A Diffuse traumatic brain injury without loss of consciousness, initial encounter (principal); G93.40 Encephalopathy, unspecified; I69.954 Hemiplegia and hemiparesis following unspecified cerebrovascular disease affecting left non-dominant side; I82.890 Acute embolism and thrombosis of other specified veins; K86.1 Other chronic pancreatitis; F17.200 Nicotine dependence, unspecified, uncomplicated; E78.5 Hyperlipidemia, unspecified; I10 Essential (primary) hypertension; E11.9 Type 2 diabetes mellitus without complications; K80.50 Calculus of bile duct without cholangitis or cholecystitis without obstruction; K57.30 Diverticulosis of large intestine without perforation or abscess without bleeding; Z79.899 Other long term (current) drug therapy; Z79.82 Long term (current) use of aspirin; Z79.4 Long term (current) use of insulin; W18.30XA Fall on same level, unspecified, initial encounter; Y92.009 Unspecified place in unspecified non-institutional (private) residence as the place of occurrence of the external cause; R00.1 Bradycardia, unspecified; F32.9 Major depressive disorder, single episode, unspecified